=== PATIENT | male | born 1975 | race Caucasian/White ===

== ENCOUNTER 2017-10-12 15:22 | Emergency (ER) | payer OTHER ==
[~2017-10-12] VITALS: Ht 177.8 cm; Wt 58.1 kg
--- NOTE | 2017-10-12 16:29 | ED CARDIAC/CP/PALPITATIONS ---
History of Present Illness General Chief Complaint: Chest Pain Stated Complaint: C/P SOB Source: patient Exam Limitations: no limitations Vital Signs & Intake/Output Vital Signs & Intake/Output Vital Signs Date Time Temp Pulse Resp B/P B/P Pulse O2 O2 Flow FiO2 Mean Ox Delivery Rate 10/12 1836 104 20 165/97 97 Nasal 2.0L Cannula 10/12 1745 97 Nasal 2.0L Cannula 10/12 1553 98.0 104 26 156/102 97 Nasal 2.0L Cannula Allergies Coded Allergies: gabapentin (From NEURONTIN) (Severe, HIVES 10/12/17) naproxen (Severe, HIVES 10/12/17) tramadol (From ULTRAM) (Severe, HIVES 10/12/17) Triage Note: PATIENT DIRECTLY TO ROOM 18 FROM EKG [place]. HX OF COPD/ASTHMA INCREASED SOB X 2-3 DAYS. BASELINE 2 L NC, SAT 97%. LUNGS DIMISHED BILATERALLY. Triage Nurses Notes Reviewed? yes Onset: Abrupt Duration: week(s): (2-3), changing over time, continues in ED, getting worse Timing: recent history Quality/Severity: moderate, pressure Location: substernal Radiation: no radiation Activities at Onset: activity Prior Chest Pain/Card Workup: non-cardiac Modifying Factors: Worsens With: palpation. Nitro Today/Relief: no nitro taken today Aspirin Today: no aspirin today Associated Symptoms: shortness of breath HPI: 42-year-old male past medical history of asthma, COPD and narcotic abuse presents for evaluation of shortness of breath and chest pain. Patient states that over the past 2-3 weeks he has had worsening shortness of breath and chest pain. Patient states that he is on oxygen 2 L at nighttime only but feels like he needs to be on it all the time. He states that when he is on his oxygen he feels fine and has no symptoms. He states that without the oxygen he is needed to use his inhalers and nebulizers [id number] without any improvement. Without the oxygen he feels chest pain and shortness of breath that are particularly worsened with exertion. He denies any hemoptysis lower extremity edema or fever. He is currently taking 20 mg of prednisone has been tapered down from 50 over the past several weeks. He is in the process of getting oxygen approved for 24 7 use and has an appointment with his open shank coverer this coming Wednesday but he feels that he cannot wait because his symptoms are worsening. He is a current smoker. No nausea vomiting sweats chills or fevers. Past History Travel History Traveled to [place] past 21 day No Medical History Any Pertinent Medical History? see below for history Respiratory: asthma, COPD Surgical History Surgical History: non-contributory Psychosocial History What is your primary language Irish Tobacco Use: Quit <30 days ago Family History Hx Contributory? No Review of Systems Review of Systems Constitutional: Reports: no symptoms. EENTM: Reports: no symptoms. Respiratory: Reports: see HPI, cough, short of breath, wheezing. Cardiovascular: Reports: see HPI, chest pain. GI: Reports: no symptoms. Genitourinary: Reports: no symptoms. Musculoskeletal: Reports: no symptoms. Skin: Reports: no symptoms. Neurological/Psychological: Reports: no symptoms. Hematologic/Endocrine: Reports: no symptoms. Immunologic/Allergic: Reports: no symptoms. All Other Systems: Reviewed and Negative Physical Exam Physical Exam General Appearance: no apparent distress, alert, awake, cachetic, thin Head: atraumatic, normal appearance Eyes: Bilateral: normal appearance, PERRL, EOMI. Ears, Nose, Throat: normal pharynx, normal ENT inspection, hearing grossly normal Neck: normal inspection, supple, full range of motion Respiratory: chest non-tender, no respiratory distress, quiet respiration, decreased breath sounds Cardiovascular: normal peripheral pulses, tachycardia, no murmurs Peripheral Pulses: 2+ radial (R), 2+ radial (L) Gastrointestinal: normal bowel sounds, soft, non-tender, no organomegaly Back: normal inspection, normal range of motion, no vertebral tenderness Extremities: normal inspection, normal range of motion, no edema, there are multiple superficial abrasions on the right forearm. There are some surrounding erythema. There is also evidence of previous IV drug use, no focal fluctuant areas or discharge Neurologic/Psych: no motor/sensory deficits, awake, alert, oriented x 3, normal gait Skin: intact, normal color, warm/dry Lymphatic: no anterior cervical chance Core Measures ACS in differential dx? No CVA/TIA Diagnosis No Sepsis Present: No Sepsis Focused Exam Completed? No Progress Differential Diagnosis: AMI, atrial fibrillation, CHF/pulm edema, pneumonia, pulmonary embolism, respiratory failure, sepsis, unstable angina, COPD exacerbation, CHF, asthma exacerbation, acute bronchitis Plan of Care: Orders Procedure Date/time Status Add-on Test (ER Only) 10/12 1603 Active Telemetry/Manager Clinical Research 10/12 1531 Active TROPONIN LEVEL 10/12 1531 Complete D-DIMER 10/12 1531 Complete COMPREHENSIVE METABOLIC PANEL 10/12 1531 Complete CBC WITHOUT DIFFERENTIAL 10/12 1531 Complete EKG 10/12 1529 Active Laboratory Tests 10/12/17 1649: D-Dimer High Sensitivty < 200 10/12/17 1636: CBC w Diff NO MAN DIFF REQ, RBC 5.90, MCV 83.3, MCH 26.2 L, MCHC 31.4 L, RDW 15.1 H, MPV 7.0 L, Gran % 58.5, Lymphocytes % 30.2, Monocytes % 8.9, Eosinophils % 2.2, Basophils % 0.2, Absolute Granulocytes 6.4, Absolute Lymphocytes 3.3, Absolute Monocytes 1.0 H, Absolute Eosinophils 0.2, Absolute Basophils 0 10/12/17 1635: Anion Gap 12, Estimated GFR > 60, BUN/Creatinine Ratio 21.7, Glucose 95, Calcium 9.2, Total Bilirubin 0.6, AST 16 L, ALT 24, Alkaline Phosphatase 71, Troponin I 0.02, Total Protein 7.0, Albumin 4.1, Globulin 2.9, Albumin/Globulin Ratio 1.4 Since evaluated. He states that over the past several weeks he feels like he needs to be on abduction 24 7. When he is on his oxygen he feels completely fine however during the day when he is not supposed to be on it he has chest pain and shortness of breath. He has been using his inhalers and nebulizers [id number] without any improvement. He denies any fever or hemoptysis. Currently he is on oxygen at 3 L nasal cannula and feels completely fine. Basic labs EKG troponin d-dimer and chest x-ray are negative for any acute findings. Patient was ambulated in the emergency department without oxygen and acutely desaturated to 89% on room air. He becomes visibly short of breath. Advised patient that he should be admitted to the hospital for further evaluation and treatment. Patient states that he is unable to stay in the hospital tonight. He states that he needs to leave to take care of his . He refuses to elaborate on exactly what this means. Advised him he could have his come in and state the hospital H and refused to have this happen. He wishes to leave AGAINST MEDICAL ADVICE. Discussed with patient in great detail about the negative health effects of hypoxia including permanent disability and . Patient is alert and oriented 3 he understands this and wishes to leave anyway. AMA form signed. Again reviewed with patient about negative health effects that he risks and he understands. Advised him he can return at any time. He states he'll come back tomorrow for reevaluation. Patient alert he has oxygen that he can use at home and advised him to use this 24 7. Continue to use inhalers as needed. He was given Solu-Medrol here. Return to the emergency department as soon as possible. Patient agrees with the plan is alert and oriented 3 discharge. Diagnostic Imaging: Viewed by Me: Radiology Read. Discussed w/RAD: Radiology Read. CXR Impression: PATIENT: JAXON PULIDO PRESENT AGE: 42 PATIENT ACCOUNT NO: [id number] : 75 LOCATION: [facility] ORDERING PHYSICIAN: Andrés RAMSEY SERVICE DATE: 10/12/17 EXAM TYPE: RAD - XRY-CHEST XRAY, TWO VIEWS EXAMINATION: XR CHEST CLINICAL INFORMATION: Chest pain, shortness of breath COMPARISON: None TECHNIQUE: 2 views of the chest were obtained. FINDINGS: No significant abnormality is noted involving the heart, lungs, mediastinum, bony thorax or soft tissues. IMPRESSION: No acute abnormality of the chest. DICTATED BY: Mahamed Steinberg MD DATE/TIME DICTATED:10/12/171648 SAND TECHNOLOGIST :JACQUIE DATE/TIME TRANSCRIBED:10/12/171648 CONFIDENTIAL, DO NOT COPY WITHOUT APPROPRIATE AUTHORIZATION. Initial ED EKG: SINUS TACHYCARDIA, RIGHT ATRIAL ABNORMALITY, BORDERLINE PROLONGED qt Departure Departure Disposition: LEFT AGAINST MEDICAL ADVICE Condition: Stable Clinical Impression Primary Impression: COPD exacerbation Additional Instructions: You are leaving AGAINST MEDICAL ADVICE it is recommended that he stay for further evaluation and treatment. Leaving the hospital could result in permanent disability or . Continue to use her inhalers and nebulizers as directed. Return to the emergency Department as soon as possible for admission to the hospital. Departure Forms: Customer Survey General Discharge Information Critical Care Note Critical Care Note Critical Care Time: non-applicable
--- NOTE | 2017-10-12 16:53 | RADIOLOGY REPORT ---
EXAMINATION: XR CHEST CLINICAL INFORMATION: Chest pain, shortness of breath COMPARISON: None TECHNIQUE: 2 views of the chest were obtained. FINDINGS: No significant abnormality is noted involving the heart, lungs, mediastinum, bony thorax or soft tissues. IMPRESSION: No acute abnormality of the chest.
[2017-10-12 16:57] LABS: ABSOLUTE BASOPHIL COUNT 0 /CUMM (0.0-0.2); ABSOLUTE EOSINOPHIL COUNT 0.2 /CUMM (0.0-0.7); ABSOLUTE GRANULOCYTE CT 6.4 /CUMM (1.4-6.5); ABSOLUTE LYMPH COUNT 3.3 /CUMM (1.2-3.4); BASOPHIL % 0.2 % (0.0-2.0); EOSINOPHIL % 2.2 % (0-5); GRANULOCYTE % 58.5 % (42.2-75.2); HEMATOCRIT 49.2 % (42-52); MEAN CORPUSCULAR HGB 26.2 PG (27.0-31.0); MEAN CORPUSCULAR HGB CONC 31.4 G/DL (33.0-37.0); MEAN CORPUSCULAR VOLUME 83.3 FL (80.0-94.0); PLATELET COUNT 367 /CUMM (130-400); RBC DISTRIBUTION WIDTH 15.1 % (11.5-14.5)
[2017-10-12 18:36] VITALS: BP 165/97
[2017-10-13] MEDS ORDERED: IPRAT-ALBUT 0.5-3 ML INH (20:22)
[2017-10-13] MEDS ORDERED: ALPRAZOLAM2 M2 PO (20:23)
[2017-10-13] MEDS ORDERED: PROAIR HFA8.5 GM INH (20:23)
[2017-10-13] MEDS ORDERED: METHADONE10 MG/1 M2 PO (20:24)
== END 2017-10-12 19:03 | disposition left against medical advice (07) ==
LOC: ERH 15:22
PROVIDERS: Physician Assistant Medical
DX: J44.1 Chronic obstructive pulmonary disease with (acute) exacerbation (principal); Z87.891 Personal history of nicotine dependence; R07.9 Chest pain, unspecified
CPT/HCPCS: 71046; 93005; 93010; 96374; J2930

== ENCOUNTER 2017-10-13 14:08 | Inpatient (IN) | payer OTHER ==
[~2017-10-13] VITALS: Ht 177.8 cm; Wt 59.0 kg
--- NOTE | 2017-10-13 18:36 | ED DYSPNEA/ASTHMA COMPLAINT ---
History of Present Illness General Chief Complaint: Dyspnea (COPD, CHF, Other) Stated Complaint: RETURN TO ER FOR ADMISSION (SEEN YEST LEFT AMA) Source: patient, old records Exam Limitations: no limitations Allergies Coded Allergies: gabapentin (From NEURONTIN) (Severe, HIVES 10/12/17) naproxen (Severe, HIVES 10/12/17) tramadol (From ULTRAM) (Severe, HIVES 10/12/17) Triage Note: PT RETURNS TO ED FOR ADMISSION. WAS SEEN IN ED YESTERDAY FOR COPD. PT LEFT AMA TO GET HIS "HOUSE IN ORDER". ARRIVES BACK TO BE ADMITTED. RA SATS 92%. PT STATES HE WEARS O2 AT NIGHT AND IS TRYING TO GET O2 DURING THE DAY. PLACED ON 2LNC IN WAITING ROOM FOR COMFORT. Triage Nurses Notes Reviewed? yes Onset: Abrupt Duration: week(s): (3-4), changing over time, continues in ED, getting worse Timing: multiple episodes today Severity: mild, moderate Activities at Onset: none Prior Episodes/Possible Cause: frequent episodes Modifying Factors: Worsens With: movement. Associated Symptoms: cough, wheezing, weakness HPI: 42-year-old male with past medical history of COPD asthma substance abuse presents for reevaluation of shortness of breath. Patient states that over the past 3 or 4 weeks she's had gradually worsening shortness of breath weakness and chest pain. Patient states that he currently is prescribed oxygen at nighttime only. He states that when he is on the oxygen he is doing fine however he says when he wakes up and gets off the oxygen he became severely short of breath. He 's been using DuoNeb's [id number] without any improvement. He denies any hemoptysis or lower extremity edema. He was seen in the hospital yesterday and was unable to stay for unknown reasons but he left AGAINST MEDICAL ADVICE. He is back today and is going to be admitted. He states he is feeling somewhat better after the IV steroids but is still having the same symptoms. No fevers cough is productive of clear sputum. (Andrés Peralta) Vital Signs & Intake/Output Vital Signs & Intake/Output Vital Signs Date Time Temp Pulse Resp B/P B/P Pulse O2 O2 Flow FiO2 Mean Ox Delivery Rate 10/14 0618 97.5 51 18 150/100 97 Nasal Cannula 10/14 0000 Nasal 2.0L Cannula 10/13 2330 98.1 85 20 140/80 95 Nasal 2.0L Cannula 10/13 2315 Nasal 2.0L Cannula 10/13 2243 96.8 87 18 117/87 97 Nasal 2.0L Cannula 10/13 2118 96.6 87 18 114/81 97 Nasal 2.0L Cannula 10/13 1956 98 20 142/82 96 Room Air 10/13 1908 98 Nasal 2.0L Cannula 10/13 1715 98.5 110 19 155/92 97 Nasal 3.0L Cannula 10/13 1516 20 96 Nasal 2.0L Cannula 10/13 1418 98.3 119 20 152/100 92 Room Air ED Intake and Output 10/14 0000 10/13 1200 Intake Total 0 Output Total Balance 0 Intake, Oral 0 Patient 130 lb Weight Weight Reported by Patient Measurement Method Reconcile Medications Albuterol Sulfate (Proair Hfa) 90 MCG HFA.AER.AD 2 PUF INH Q4H PRN WHEEZING ( Reported) Alprazolam 2 MG TABLET 1 TAB PO BID ANXIETY (Reported) Ipratropium/Albuterol Sulfate (Iprat-Albut 0.5-3(2.5) MG/3 Ml) 0.5 MG-3 MG (2.5 MG BASE)/3 ML AMPUL.NEB 3 ML INH Q6H PRN WHEEZING (Reported) Methadone HCl 10 MG/ML ORAL.CONC 100 MG PO DAILY MENTAL HEALTH (Reported) (Abi KAMINSKI,[facility]) Past History Travel History Traveled to [place] past 21 day No Medical History Any Pertinent Medical History? see below for history Respiratory: asthma, COPD Psychiatric: methadone Surgical History Surgical History: non-contributory Psychosocial History What is your primary language Dutch Tobacco Use: Quit <30 days ago ETOH Use: denies use Illicit Drug Use: denies illicit drug use Family History Hx Contributory? No (Anish RAMSEY,Andrés) Review of Systems Review of Systems Constitutional: Reports: no symptoms. EENTM: Reports: no symptoms. Respiratory: Reports: see HPI, cough, short of breath, sputum production, wheezing. Cardiovascular: Reports: see HPI, chest pain. GI: Reports: no symptoms. Genitourinary: Reports: no symptoms. Musculoskeletal: Reports: no symptoms. Skin: Reports: no symptoms. Neurological/Psychological: Reports: no symptoms. Hematologic/Endocrine: Reports: no symptoms. Immunologic/Allergic: Reports: no symptoms. All Other Systems: Reviewed and Negative (Andrés Peralta) Physical Exam Physical Exam General Appearance: no apparent distress, alert, awake, cachetic, thin Head: atraumatic, normal appearance Eyes: Bilateral: normal appearance, PERRL, EOMI. Ears, Nose, Throat: normal pharynx, normal ENT inspection, hearing grossly normal Neck: normal inspection, supple, full range of motion, no jvd Respiratory: chest non-tender, no respiratory distress, quiet respiration, decreased breath sounds Cardiovascular: normal peripheral pulses, tachycardia (rate 110) Peripheral Pulses: 2+ radial (R), 2+ radial (L) Gastrointestinal: normal bowel sounds, soft, non-tender, no organomegaly Extremities: normal range of motion, no edema, patient has previous scar tissue from IV drug use. They are superficial abrasions with surrounding erythema to the right anterior forearm. No swelling or purulent discharge. No tenderness to palpation. This is unchanged from yesterday Neurologic/Psych: no motor/sensory deficits, awake, alert, oriented x 3 Skin: intact, normal color, warm/dry Core Measures ACS in differential dx? No CVA/TIA Diagnosis No Sepsis Present: No Sepsis Focused Exam Completed? No (Andrés Peralta) Progress Differential Diagnosis: asthma, AMI, bronchitis, CHF, COPD, pulmonary embolism, pneumonia, pneumothorax Plan of Care: Orders Procedure Date/time Status Regular Diet 10/14 B Active BASIC ELECTROLYTES PLUS BUN&CR 10/14 0635 Complete TROPONIN LEVEL 10/14 0600 Complete CBC WITHOUT DIFFERENTIAL 10/14 06 Complete EKG 10/14 0600 Active Pathway - chart 10/14 108 Active House Staff 10/14 108 Active Patient Data 10/14 108 Active TROPONIN LEVEL 10/14 010 Complete EKG 10/14 010 Active Code Status 10/14 010 Active TRC EVALUATION (GEN) 10/14 UNK Active VTE Mechanical Prophylaxis 10/14 UNK Active Vital Signs 10/14 UNK Active PHARMACY COMMUNICATION FORM 10/14 UNK Active NUTRITIONAL CONSULT 10/13 2337 Active Vital Signs 10/13 2319 Active Teach/Educate 10/13 2319 Active Pain Treatment and Response 10/13 2319 Active Nutritional Intake, Monitor 10/13 2319 Active Isolation 10/13 2319 Active Intake & Output 10/13 2319 Active Patient Care Conference 01/31 2320 Active Activity/Ambulation 10/13 232 Active RAPID VIRAL INFLUENZA A 10/13 2230 Complete Patient Data 10/13 2157 Active ED Holding Orders 10/13 2114 Active Admit to inpatient 10/13 2114 Active Vital Signs 10/13 2114 Active Code Status 10/13 2114 Complete ARTERIAL BLOOD GAS (GEN) 10/13 1937 Complete Intake & Output 10/13 181 Active BLOOD CULTURE 10/13 181 Active URINE DRUG SCREEN FOR ER ONLY 10/13 172 Complete URINALYSIS 10/13 1726 Complete TROPONIN LEVEL 10/13 172 Complete COMPREHENSIVE METABOLIC PANEL 10/13 172 Complete CBC WITHOUT DIFFERENTIAL 10/13 172 Complete EKG 10/13 172 Active Current Medications Sig/Tab Start time Last Medication Dose Stop Time Status Admin Alprazolam 2 MG BID 10/14 1000 AC 10/14 (Xanax) 10/21 0959 0900 Azithromycin 500 MG DAILY 10/14 1000 AC 10/14 (Zithromax) 0940 Dextrose/Water 250 ML (D5W) Enoxaparin Sodium 40 MG DAILY 10/14 1000 AC 10/14 (Lovenox) 0908 Guaifenesin 600 MG Q12 10/14 1000 AC 10/14 (Mucinex) 0900 Methadone HCl 100 MG DAILY 10/14 1000 AC 10/14 (Dolophine) 0844 Methylprednisolone 40 MG Q12 10/14 1000 AC 10/14 (Solumedrol) 0900 Acetaminophen 650 MG Q6P PRN 10/14 0115 AC (Tylenol) Albuterol Sulfate 2 PUF Q4H PRN 10/14 0115 AC (Ventolin) Methylprednisolone 125 MG ONCE ONE 10/13 184 CAN (Solu Medrol) 10/13 1846 Laboratory Tests 10/14/17 1020: Urine Opiates Screen > 4000.00 H, Methadone Screen > 735 H, Barbiturate Screen < 60, Ur Phencyclidine Scrn 10.10, Amphetamines Screen < 100, U Benzodiazepines Scrn > 800 H, Urine Cocaine Screen > 1000 H, Urine Cannabis Screen < 5.00, Urine Color YEL, Urine Clarity CLEAR, Urine pH 6.0, Ur Specific [place] 1.025, Urine Protein NEG, Urine Ketones NEG, Urine Nitrite NEG, Urine Bilirubin NEG, Urine Urobilinogen 0.2, Ur Leukocyte Esterase NEG, Ur Microscopic EXAM NOT REQUIRED, Urine Hemoglobin NEG, Urine Glucose NEG 10/14/17 0742: Sodium Cancelled, Potassium Cancelled, Chloride Cancelled, Carbon Dioxide Cancelled, Anion Gap Cancelled, BUN Cancelled, Creatinine Cancelled, BUN/ Creatinine Ratio Cancelled, CBC w Diff NO MAN DIFF REQ, RBC 5.41, MCV 83.1, MCH 26.5 L, MCHC 31.9 L, RDW 15.1 H, MPV 7.2 L, Gran % 74.3, Lymphocytes % 18.4 L, Monocytes % 7.0, Eosinophils % 0, Basophils % 0.3, Absolute Granulocytes 9.2 H, Absolute Lymphocytes 2.3, Absolute Monocytes 0.9 H, Absolute Eosinophils 0, Absolute Basophils 0 10/14/17 0635: Anion Gap 13, Estimated GFR > 60, BUN/Creatinine Ratio 36.0 H, Troponin I < 0.01 10/14/17 0120: Troponin I < 0.01 10/13/17 2018: Anion Gap 13, Estimated GFR > 60, BUN/Creatinine Ratio 30.0 H, Glucose 138 H, Calcium 9.6, Total Bilirubin 0.6, AST 15 L, ALT 18 L, Alkaline Phosphatase 66, Troponin I < 0.01, Total Protein 7.1, Albumin 4.2, Globulin 2.9, Albumin/ Globulin Ratio 1.4 10/13/17 2015: pH 7.39, pCO2 55 H, pO2 75 L, HCO3 33 H, ABG O2 Sat (Measured) 95.0 L, P-50 (Temp Corrected) N, Carboxyhemoglobin 2.3, O2 Concentration % 2L, O2 Delivery Method N/C, Phlebotomy Draw Site RIGHT RADIAL 10/13/171905: CBC w Diff NO MAN DIFF REQ, RBC 5.96, MCV 83.1, MCH 26.3 L, MCHC 31.6 L, RDW 15.7 H, MPV 7.4, Gran % 80.3 H, Lymphocytes % 12.2 L, Monocytes % 6.9, Eosinophils % 0.2, Basophils % 0.4, Absolute Granulocytes 7.2 H, Absolute Lymphocytes 1.1 L, Absolute Monocytes 0.6, Absolute Eosinophils 0, Absolute Basophils 0 Microbiology 10/13 2233 NASOPHARYN: Influenza Virus A & B Rapid Smear - COMP 10/13 1905 BLOOD: Blood Culture - RES 01/31 1850 BLOOD: Blood Culture - RES Patient seen and evaluated. He is mentating well but is significantly hypoxic. He denies any chest pain currently. He is back and willing to be admitted now. He is still hypoxic desaturating to 85% on room air with exertion. We'll recheck basic labs CT scan of the chest and an ABG. Patient will require admission to the hospital. He is on [address] scan of the chest does not show any pneumonia or other acute findings. Waiting on labs and ABG for admission. pt signed out to dr alex pending admission and labs (Anish RAMSEY,Andrés) 8:43 PM PATIENT SIGNED OUT TO ME BY BRAULIO AWAD, PENDING CHEMISTRIES. 9:15 PM TROPONIN NEGATIVE. PATIENT BOOKED FOR INPATIENT, COPD EXACERBATION. (Abi KAMINSKI,Danielle) Diagnostic Imaging: Viewed by Me: CT Scan. Discussed w/RAD: CT Scan. Radiology Impression: PATIENT: JAXON PULIDO PRESENT AGE: 42 PATIENT ACCOUNT NO: [id number] : 75 LOCATION: [facility] ORDERING PHYSICIAN: Andrés RAMSEY SERVICE DATE: 10/13/17 EXAM TYPE: CAT - CT CHEST WO IV CONTRAST EXAMINATION: CT CHEST WITHOUT CONTRAST CLINICAL INFORMATION : Shortness of breath COMPARISON: Chest x-ray 10/12/2017 TECHNIQUE: Multidetector volumetric CT imaging of the chest was done. Axial MIP volume rendering provided. Sagittal and coronal reformatted images were obtained. DLP: 224.01 mGy-cm FINDINGS: LUNGS: The lungs are clear with no evidence of inflammation or nodules. MEDIASTINUM: The mediastinum is normal. PLEURA: There is no pleural effusion. No pleural mass or thickening. AXILLA: No lymphadenopathy. UPPER ABDOMEN: There are pedunculated cysts of the kidneys. Largest on the left upper pole measuring 4.3 cm. There is a pedunculated cyst at the posterior midpole of the right kidney measuring 1.9 cm. The adrenal gland is normal. Visualized portions of liver and spleen are unremarkable. OSSEOUS STRUCTURES: Small Schmorl's node depression of the anterior superior endplate T8 vertebrae. Minimal degenerative lipping at the anterior endplates of the mid lower thoracic spine vertebrae. IMPRESSION: No acute abnormality CT scan of the chest. DICTATED BY: Mahamed Steinberg MD DATE/TIME DICTATED:10/13/171823 SERVICE PARTS COORDINATOR:JACQUIE DATE/TIME TRANSCRIBED:10/13/171823 CONFIDENTIAL, DO NOT COPY WITHOUT APPROPRIATE AUTHORIZATION. <Electronically signed in Other Vendor System> SIGNED BY: Mahamed Steinberg MD 10/13/171838 Initial ED EKG: sinus arrhythmia, consider right ventricular hypertrophy rate 74 bpm Hand-Off Endorsed To: Danielle Alex MD Endorsed Time: 2043 Pending: labs (Andrés Peralta) Departure Departure Condition: Stable Clinical Impression Primary Impression: COPD exacerbation Secondary Impressions: Hypoxia Referrals: Ermias KAMINSKI Sameer (PCP/Family) Departure Forms: Customer Survey General Discharge Information Admission Note Spoke With: Kaden Raymundo MD Documentation of Exam: Documentation of any treatments & extenuating circumstances including Concerns Regarding Discharge (functional status, medication knowledge or non-compliance, living conditions, etc.) that warrant an admission rather than observation: [ Pulmonology consult, oxygen, serial labs, serial EKGs, IV steroids, DuoNeb ] (Andrés Peralta) Departure Time of Disposition: 2115 Disposition: STILL A PATIENT Admission Note Documentation of Exam: Documentation of any treatments & extenuating circumstances including Concerns Regarding Discharge (functional status, medication knowledge or non-compliance, living conditions, etc.) that warrant an admission rather than observation: (Danielle Alex MD) PA/WOOD SETTER Co-Sign Statement Statement: ED Attending supervision documentation- [x] I saw and evaluated the patient. I have also reviewed all the pertinent lab results and diagnostic results. I agree with the findings and the plan of care as documented in the PA's/WOOD SETTER's documentation. [] I have reviewed the ED Record and agree with the PA's/WOOD SETTER's documentation. [] Additions or exceptions (if any) to the PAs/WOOD SETTER's note and plan are summarized below: [] (Lorenzo Aguilar DO) Critical Care Note Critical Care Note Critical Care Time: 30-74 min (Andrés Peralta)
--- NOTE | 2017-10-13 18:39 | CT SCAN REPORT ---
EXAMINATION: CT CHEST WITHOUT CONTRAST CLINICAL INFORMATION: Shortness of breath COMPARISON: Chest x-ray 10/12/2017 TECHNIQUE: Multidetector volumetric CT imaging of the chest was done. Axial MIP volume rendering provided. Sagittal and coronal reformatted images were obtained. DLP: 224.01 mGy-cm FINDINGS: LUNGS: The lungs are clear with no evidence of inflammation or nodules. MEDIASTINUM: The mediastinum is normal. PLEURA: There is no pleural effusion. No pleural mass or thickening. AXILLA: No lymphadenopathy. UPPER ABDOMEN: There are pedunculated cysts of the kidneys. Largest on the left upper pole measuring 4.3 cm. There is a pedunculated cyst at the posterior midpole of the right kidney measuring 1.9 cm. The adrenal gland is normal. Visualized portions of liver and spleen are unremarkable. OSSEOUS STRUCTURES: Small Schmorl's node depression of the anterior superior endplate T8 vertebrae. Minimal degenerative lipping at the anterior endplates of the mid lower thoracic spine vertebrae. IMPRESSION: No acute abnormality CT scan of the chest.
[2017-10-13 19:23] LABS: ABSOLUTE BASOPHIL COUNT 0 /CUMM (0.0-0.2); ABSOLUTE EOSINOPHIL COUNT 0 /CUMM (0.0-0.7); ABSOLUTE GRANULOCYTE CT 7.2 /CUMM (1.4-6.5); ABSOLUTE LYMPH COUNT 1.1 /CUMM (1.2-3.4); ABSOLUTE MONOCYTE COUNT 0.6 /CUMM (0.10-0.60); BASOPHIL % 0.4 % (0.0-2.0); EOSINOPHIL % 0.2 % (0-5); GRANULOCYTE % 80.3 % (42.2-75.2); HEMATOCRIT 49.5 % (42-52); MEAN CORPUSCULAR HGB 26.3 PG (27.0-31.0); MEAN CORPUSCULAR HGB CONC 31.6 G/DL (33.0-37.0); MEAN CORPUSCULAR VOLUME 83.1 FL (80.0-94.0); MEAN PLATELET VOLUME 7.4 FL (7.4-10.4); RBC DISTRIBUTION WIDTH 15.7 % (11.5-14.5); RED BLOOD CELL CT 5.96 /CUMM (4.70-6.10)
[2017-10-13 19:35] LABS: PLATELET COUNT 100 /CUMM (130-400)
[2017-10-13] MEDS ORDERED: IPRAT-ALBUT 0.5-3 ML INH (20:22)
[2017-10-13] MEDS ORDERED: ALPRAZOLAM2 M2 PO (20:23)
[2017-10-13] MEDS ORDERED: PROAIR HFA8.5 GM INH (20:23)
[2017-10-13] MEDS ORDERED: METHADONE10 MG/1 M2 PO (20:24)
--- NOTE | 2017-10-13 22:03 | History & Physical ---
Larry KAMINSKI,[facility] 10/13/17 4043: General Information and HPI MD Statement: I have seen and personally examined JAXON PULIDO and documented this H&P. The patient is a 42 year old M who presented with a patient stated chief complaint of [shortness of breath]. Source of Information: patient, family Exam Limitations: no limitations History of Present Illness: 42-year-old male past medical history of asthma, COPD, substance abuse, currently on methadone presenting for shortness of breath. The patient states that he has a history of asthma and sees a asphalt heater tender. The patient states that he is on 2 L of oxygen at night and is on every 6 hours nebulizers as needed. The patient states that he desaturates to 86% oxygen daily even at rest. The patient states that his shortness of breath has been worsening for 1 week. He has attempted to try to follow-up with a asphalt heater tender for home oxygen however it was going to take him 3 weeks to get an appointment. The patient states that he quit smoking about one month ago. He used to smoke 1.5 packs a day for the past 25 years. The patient states that he has also had chest tightness of his her for 1 week. The patient states that the tightness occurs after he is tapered off the oxygen treatment. Also note, the patient has lost 62 pounds in the past month. The patient denies any fevers, chills, nausea, vomiting, or diarrhea. Of note, the patient states that his prior chest x-rays have revealed what he describes as 2 shadows. The patient also has mold his house and left AMA upon last discharge. Allergies/Medications Allergies: Coded Allergies: gabapentin (From NEURONTIN) (Severe, HIVES 10/12/17) naproxen (Severe, HIVES 10/12/17) tramadol (From ULTRAM) (Severe, HIVES 10/12/17) Home Med list Albuterol Sulfate (Proair Hfa) 90 MCG HFA.AER.AD 2 PUF INH Q4H PRN WHEEZING ( Reported) Alprazolam 2 MG TABLET 1 TAB PO BID ANXIETY (Reported) Ipratropium/Albuterol Sulfate (Iprat-Albut 0.5-3(2.5) MG/3 Ml) 0.5 MG-3 MG (2.5 MG BASE)/3 ML AMPUL.NEB 3 ML INH Q6H PRN WHEEZING (Reported) Methadone HCl 10 MG/ML ORAL.CONC 100 MG PO DAILY MENTAL HEALTH (Reported) Past History Travel History Traveled to [place] past 21 day No Medical History Respiratory: asthma, COPD Psychiatric: methadone Surgical History Surgical History: non-contributory Past Family/Social History Psychosocial History ETOH Use: denies use Illicit Drug Use: denies illicit drug use Review of Systems Review of Systems Constitutional: Denies: chills, fever. Cardiovascular: Reports: see HPI, chest pain. Respiratory: Reports: short of breath. GI: Reports: no symptoms. Genitourinary: Reports: no symptoms. Exam & Diagnostic Data Last 24 Hrs of Vital Signs/I&O Vital Signs Date Time Temp Pulse Resp B/P B/P Pulse O2 O2 Flow FiO2 Mean Ox Delivery Rate 10/14 0000 Nasal 2.0L Cannula 10/13 2330 98.1 85 20 140/80 95 Nasal 2.0L Cannula 10/13 2315 Nasal 2.0L Cannula 10/13 2243 96.8 87 18 117/87 97 Nasal 2.0L Cannula 10/13 2118 96.6 87 18 114/81 97 Nasal 2.0L Cannula 10/13 1956 98 20 142/82 96 Room Air 10/13 1908 98 Nasal 2.0L Cannula 10/13 1715 98.5 110 19 155/92 97 Nasal 3.0L Cannula 10/13 1516 20 96 Nasal 2.0L Cannula 10/13 1418 98.3 119 20 152/100 92 Room Air Intake & Output 10/14 0800 10/14 0000 10/13 1600 Intake Total 0 Output Total Balance 0 Intake, Oral 0 Patient 130 lb 128 lb Weight Weight Reported by Patient Reported by Patient Measurement Method Physical Exam General Appearance Alert, Oriented X3, Cooperative, No Acute Distress Cardiovascular Regular Rate, Normal S1, Normal S2 Lungs decreased air movement bilaterally Abdomen Normal Bowel Sounds, Soft, No Tenderness Extremities no lower extremity edema Vascular 2+ radial pulses Assessment/Plan Assessment: Assessment: 42-year-old male past medical history of asthma, COPD,substance abuse, currently on methadone presenting for chief complaints of flulike symptoms. Problems: #COPD WBC 9.0 -solumedrol 40 twice a day, -Contact pulmonary service for consult -Continue TRC, nebs, azithromycin -Monitor oxygen saturation and ambulation -Discussed with case management regarding patient's end-of-life goals. #chronic pain Patient states he takes 100 mg methadone from 7:30 2 in the morning. We will confirm his dosing. #anxiety -Continue home Xanax #thrombocytopenia -platelets 100 #dvt prophylaxis -lovenox #full code As Ranked By This Provider Problem List: 1. COPD exacerbation Core Measures/Misc (05/30) Acute Coronary Syndrome ACS Diagnosis: No Congestive Heart Failure Congestive Heart Failure Diagnosis No Cerebrovascular Accident CVA/TIA Diagnosis: No VTE (View Protocol) VTE Risk Factors Acute Medical Illness No Mechanical VTE Prophylaxis d/t Other No VTE Pharm Prophylaxis d/t NA PharmProphylax ordered Sepsis (View protocol) Sepsis Present: No Kaden Raymundo 10/14/17 0505: Attending MD Review Statement Attending Statement Attending MD Statement: examined this patient, discuss w/resident/PA/REHAB SPECIALIST, agreed w/resident/PA/REHAB SPECIALIST, discussed with family, reviewed EMR data (avail), reviewed images, amended to note Attending Assessment/Plan: CC: Shortness of breath PMH: Asthma, COPD Patient came to ER for persistent shortness of breath. Patient was seen in ER yesterday for similar complaints and was suggested to get admitted but patient left AMA as he had to check out from hotel room. Patient checked in a hotel because his house has mold. Since last 1-2 weeks he has been noticing progressive worsening of shortness of breath associated with wheezing. He uses nighttime oxygen but even during daytime he is requiring oxygen and getting low oxygen saturation even going few steps. Yesterday and today he noticed some cough with no sputum production. Intermittently he has been noticing chest tightness more so in the morning hours when he wakes up and feels shortness of breath and has to use oxygen to relieve the chest pain. He denies any fever, chills, nausea, vomiting, choking, long travels. He has been losing weight, he lost approximately 60 pounds in last 1 month. He was also told that he has 2 pulmonary nodules approximately 2 months back and he was suggested to follow-up with serial CT scans. Patient states that he has been following outpatient asphalt heater tender but not very happy with the care, he was requesting for daytime oxygen to the asphalt heater tender but could not get in appointment. 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 Patient states that he had tried Spiriva, Advair and such medications in the past and it gives him more tachycardia, shortness of breath and he feels panicky. Vitals: Afebrile, tachycardic on arrival but improved to 80s, RR 20, blood pressure 142/82, saturating 92% on 2 L, desaturated less than 87% on ambulating On exam: A O 3, cooperative, no acute distress, neck supple, JVD normal, no lymphadenopathy, mucosa moist, no focal neurological deficit, no dependent edema , no obvious skin rashes or inflammation CVS: S1-S2, RRR. RS: Markedly decreased air entry. Abdomen: Soft, NT, ND, bowel sounds present. Labs: CBC unremarkable except platelet 100, which decreased from 367 yesterday. Sodium 143, potassium 4.2, chloride 94, bicarbonate 36, BUN 18, creatinine 0.6, glucose 138, calcium 9.6, LFT unremarkable, troponin less than 0.01, AB.39/55/75/33 on [address] chest without IV contrast: No acute abnormality CT scan of the chest. There are pedunculated cysts of the kidneys. Largest on the left upper pole measuring 4.3 cm. There is a pedunculated cyst at the posterior midpole of the right kidney measuring 1.9 cm. 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 Patient was seen in ER yesterday but he left AGAINST MEDICAL ADVICE, he was prescribed prednisone and nebulization treatment. He came back today expecting to get home oxygen set up. He requested portable oxygen to carry around during the daytime. On examination he has markedly decreased air entry, I could not notice any obvious wheezing or crackles. He looks cachectic. No significant leukocytosis but there is left shift probably because of steroids. His elevated bicarbonate confirmed on ABG shows PCO2 of 55, compensated. Patient saturating well on 2-3 L. He was desaturating less than 87% on ambulation. Given his young age, other causes like alpha-1 antitrypsin deficiency, interstitial lung disease should be ruled out. We will get pulmonology opinion. + COPD exacerbation + Thrombocytopenia: Repeat labs in a.m. 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 Pulido is 42 year old male with past medical history significant for COPD, asthma, substance abuse on methadone, anxiety, PTSS who presented to ED with chief complaint of COPD and is satting on room air to 86%. 2 months ago patient started to follow up with pulmonology clinic at [place], was prescribed oxygen at nighttime however every time patient take oxygen off notice desat to 86% on room air. Reported worsening of shortness of breath associated with chest tightness, palpitation, dry cough. Patient presented to ED yesterday and left AGAINST MEDICAL ADVICE. He didn't take the flu vaccine this season because of complication, had the pneumonia vaccine. Problem list #Acute hypoxic and hypercapnic respiratory failure #COPD exacerbation #Thrombocytopenia #Hyperkalemia #Substance abuse on methadone Plan Admit to general medical floor Vitals every shift TRC and nebs Solu-Medrol 40 mg twice daily Azithromycin IV Pulmonary consultation Initial troponins and EKG negative, we'll repeat troponin and EKG 3 given history of tightness chest pain Code full DVT prophylaxis Lovenox and Alps Diet regular
[2017-10-13 23:30] VITALS: BP 140/80
--- NOTE | 2017-10-14 05:08 | Admission Certification ---
Admission Certification Certification Statement - As attending physician, I certify that at the time of - admission, based on clinical presentation, severity of - symptoms, need for further diagnostic testing and - therapeutic interventions, and risk of adverse outcomes - without in-hospital treatment, in my clinical assessment, - this patient requires an acute hospital stay for a minimum - of two nights or longer. I have also considered psychsocial - factors such as support system, advanced age, financial - issues, cognitive issues, and failed out-patient treatments, - past re-admission history, safety of patient, and lack of - compliance as applicable. Specific rationale supporting this admission is: COPD exacerbation
[2017-10-14 06:18] VITALS: BP 150/100
--- NOTE | 2017-10-14 07:39 | PN- Housestaff ---
ArielmerleneJimena 10/14/17 0738: Subjective Follow-up For: COPD exacerbation Opiate dependence on methadone Thrombocytopenia Subjective: Patient is seen and examined this morning, seemed a little jittery asking for his methadone. [facility] was called in this morning and methadone dose(100 mg maintenance) was confirmed Otherwise patient does not complain of shortness of breath and chest discomfort or palpitations. CT chest done yesterday did not show any evidence of lung nodules however patient claimed that the CAT scan done at his pulmonology office at [place] about 2 months ago showed pulmonary nodules will call the radiology and reconfirm. this CAT scans findings, Review of Systems Constitutional: Denies: diaphoresis. EENTM: Denies: blurred vision, double vision, visual changes, eye pain. Cardiovascular: Denies: chest pain, edema, orthopena. Respiratory: Denies: cough, hemoptysis, orthopnea. Gastrointestinal: Denies: abdominal pain, bloating, constipation, diarrhea. Genitourinary: Denies: discharge, frequency, hesitation. Musculoskeletal: Denies: back pain, joint pain, joint swelling. Objective Last 24 Hrs of Vital Signs/I&O Vital Signs Date Time Temp Pulse Resp B/P B/P Pulse O2 O2 Flow FiO2 Mean Ox Delivery Rate 10/14 0618 97.5 51 18 150/100 97 Nasal Cannula 10/14 0000 Nasal 2.0L Cannula 10/13 2330 98.1 85 20 140/80 95 Nasal 2.0L Cannula 10/13 2315 Nasal 2.0L Cannula 10/13 2243 96.8 87 18 117/87 97 Nasal 2.0L Cannula 10/13 2118 96.6 87 18 114/81 97 Nasal 2.0L Cannula 10/13 1956 98 20 142/82 96 Room Air 10/13 1908 98 Nasal 2.0L Cannula 10/13 1715 98.5 110 19 155/92 97 Nasal 3.0L Cannula 10/13 1516 20 96 Nasal 2.0L Cannula Intake & Output 10/14 1600 10/14 0800 10/14 0000 Intake Total 200 0 Output Total Balance 200 0 Intake, Oral 200 0 Patient 130 lb 130 lb Weight Weight Reported by Patient Measurement Method Physical Exam General Appearance: Alert, Oriented X3 Skin: No Rashes, No Breakdown Skin Temp/Moisture Exam: Cool/Dry HEENT: Atraumatic, PERRLA Neck: Supple, No JVD Assessment/Plan Assessment: This is a 42-year-old man with a past medical history significant for childhood asthma, recently diagnosed COPD on nocturnal oxygen,, history of significant smoking quit about a month ago presented to the ED with concerns of shortness of breath and wheezing for the last 2 weeks. Vitals on admission were normal pertinent labs she showed no evidence of leukocytosis Assessment and plan COPD exacerbation * Continue to monitor [facility] on [facility] floor * Continue with IV Solu-Medrol 40 mg twice a day today * Continue with azithromycin * Continue TRC nebs. * If patient remains stable tomorrow we will consider discharging him on tapered prednisone with azithromycin for a total of 5 days History of lung nodules on previous CAT scans * CT chest done yesterday did not show any evidence of lung nodules however patient claimed that the CAT scan done at his pulmonology office at [place] about 2 months ago showed pulmonary nodules will call the radiology and reconfirm. this CAT scans findings Opiate dependence on methadone: * [facility] this morning and methadone dose(100 mg maintenance) was confirmed. Thrombocytopenia * Platelet count improved this morning. DVT prophylaxis with Lovenox Patient is full code Problem List: 1. COPD exacerbation Pain Ratin Pain Location: no pain at this time Pain Goal: Remain pain free Pain Plan: prn tylenol Tomorrow's Labs & Rationales: cbc and bep Jr KAMINSKI,[facility] 10/14/17 1328: Attending MD Review Statement Attending Statement Attending MD Statement: examined this patient, discuss w/resident/PA/ROASTER HELPER, agreed w/resident/PA/ROASTER HELPER, reviewed EMR data (avail), discussed with nursing, discussed with case mgmt, reviewed images, amended to note Attending Assessment/Plan: Patient seen and examined, feels better. Breathing is slightly better today. Patient remains on IV steroids. Patient requesting that he does not have a portable oxygen tank and he wants one to be arranged. Vital Signs Date Time Temp Pulse Resp B/P B/P Pulse O2 O2 Flow FiO2 Mean Ox Delivery Rate 10/14 0618 97.5 51 18 150/100 97 Nasal Cannula 10/14 0000 Nasal 2.0L Cannula 10/13 2330 98.1 85 20 140/80 95 Nasal 2.0L Cannula 10/13 2315 Nasal 2.0L Cannula 10/133 96.8 87 18 117/87 97 Nasal 2.0L Cannula 10/13 2117 96.6 87 18 114/81 97 Nasal 2.0L Cannula 10/13 1956 98 20 142/82 96 Room Air 10/13 1908 98 Nasal 2.0L Cannula 10/13 1715 98.5 110 19 155/92 97 Nasal 3.0L Cannula 10/13 1516 20 96 Nasal 2.0L Cannula 10/13 1418 98.3 119 20 152/100 92 Room Air on exam; aox3, nad. cv; s1, s2, rrr resp; scattered wheeze with overall decreased bs. abd; soft, nt, bs+ ext; no edema. Laboratory Tests 10/14 10/14 1020 0742 Chemistry Sodium Cancelled Potassium Cancelled Chloride Cancelled Carbon Dioxide Cancelled Anion Gap Cancelled BUN Cancelled Creatinine Cancelled BUN/Creatinine Ratio Cancelled Hematology CBC w Diff NO MAN DIFF REQ WBC (4.8 - 10.8 /CUMM) 12.4 H RBC (4.70 - 6.10 /CUMM) 5.41 Hgb (14.0 - 18.0 G/DL) 14.3 Hct (42 - 52 %) 45.0 MCV (80.0 - 94.0 FL) 83.1 MCH (27.0 - 31.0 PG) 26.5 L MCHC (33.0 - 37.0 G/DL) 31.9 L RDW (11.5 - 14.5 %) 15.1 H Plt Count (130 - 400 /CUMM) 423 H MPV (7.4 - 10.4 FL) 7.2 L Gran % (42.2 - 75.2 %) 74.3 Lymphocytes % (20.5 - 51.1 %) 18.4 L Monocytes % (1.7 - 9.3 %) 7.0 Eosinophils % (0 - 5 %) 0 Basophils % (0.0 - 2.0 %) 0.3 Absolute Granulocytes (1.4 - 6.5 /CUMM) 9.2 H Absolute Lymphocytes (1.2 - 3.4 /CUMM) 2.3 Absolute Monocytes (0.10 - 0.60 /CUMM) 0.9 H Absolute Eosinophils (0.0 - 0.7 /CUMM) 0 Absolute Basophils (0.0 - 0.2 /CUMM) 0 Toxicology Urine Opiates Screen (>2000 NG/ML) > 4000.00 H Methadone Screen (>300 NG/ML) > 735 H Barbiturate Screen (>200 NG/ML) < 60 Ur Phencyclidine Scrn (>25 NG/ML) 10.10 Amphetamines Screen (>1000 NG/ML) < 100 U Benzodiazepines Scrn (>200 NG/ML) > 800 H Urine Cocaine Screen (>300 NG/ML) > 1000 H Urine Cannabis Screen (>50 NG/ML) < 5.00 Urines Urine Color (YEL,AMB,STR) YEL Urine Clarity (CLEAR) CLEAR Urine pH (5.0 - 8.0) 6.0 Ur Specific [place] (1.001 - 1.035) 1.025 Urine Protein (NEG,<30 MG/DL) NEG Urine Ketones (NEG) NEG Urine Nitrite (NEG) NEG Urine Bilirubin (NEG) NEG Urine Urobilinogen (0.1 - 1.0 EU/dl) 0.2 Ur Leukocyte Esterase (NEG) NEG Ur Microscopic EXAM NOT REQUIRED Urine Hemoglobin (NEG) NEG Urine Glucose (N MG/DL) NEG 10/14 10/14 10/13 10/13 0635 0120 2017 2014 Blood Gas pH (7.35 - 7.45 PH) 7.39 pCO2 (35 - 45 TORR) 55 H pO2 (80 - 100 TORR) 75 L HCO3 (21 - 28 MEQ/L) 33 H ABG O2 Sat (Measured) (>96.0 %) 95.0 L P-50 (Temp Corrected) N Carboxyhemoglobin (1.5 - 5.0 %) 2.3 O2 Concentration % 2L O2 Delivery Method N/C Chemistry Sodium (137 - 145 mmol/L) 142 143 Potassium (3.5 - 5.1 mmol/L) 4.8 5.2 H Chloride (98 - 107 mmol/L) 94 L 94 L Carbon Dioxide (22 - 30 mmol/L) 36 H 36 H Anion Gap (5 - 16) 13 13 BUN (9 - 20 mg/dL) 18 18 Creatinine (0.7 - 1.2 mg/dL) 0.5 L 0.6 L Estimated GFR (>60 ml/min) > 60 > 60 BUN/Creatinine Ratio (7 - 25 %) 36.0 H 30.0 H Glucose (65 - 99 mg/dL) 138 H Calcium (8.4 - 10.2 mg/dL) 9.6 Total Bilirubin (0.2 - 1.3 mg/dL) 0.6 AST (17 - 59 U/L) 15 L ALT (21 - 72 U/L) 18 L Alkaline Phosphatase (< 127 U/L) 66 Troponin I (<0.11 ng/ml) < 0.01 < 0.01 < 0.01 Total Protein (6.3 - 8.2 g/dL) 7.1 Albumin (3.5 - 5.0 g/dL) 4.2 Globulin (1.9 - 4.2 gm/dL) 2.9 Albumin/Globulin Ratio (1.1 - 2.2 %) 1.4 Miscellaneous Phlebotomy Draw Site RIGHT RADIAL 10/13 1905 Hematology CBC w Diff NO MAN DIFF REQ WBC (4.8 - 10.8 /CUMM) 9.0 RBC (4.70 - 6.10 /CUMM) 5.96 Hgb (14.0 - 18.0 G/DL) 15.6 Hct (42 - 52 %) 49.5 MCV (80.0 - 94.0 FL) 83.1 MCH (27.0 - 31.0 PG) 26.3 L MCHC (33.0 - 37.0 G/DL) 31.6 L RDW (11.5 - 14.5 %) 15.7 H Plt Count (130 - 400 /CUMM) 100 L MPV (7.4 - 10.4 FL) 7.4 Gran % (42.2 - 75.2 %) 80.3 H Lymphocytes % (20.5 - 51.1 %) 12.2 L Monocytes % (1.7 - 9.3 %) 6.9 Eosinophils % (0 - 5 %) 0.2 Basophils % (0.0 - 2.0 %) 0.4 Absolute Granulocytes (1.4 - 6.5 /CUMM) 7.2 H Absolute Lymphocytes (1.2 - 3.4 /CUMM) 1.1 L Absolute Monocytes (0.10 - 0.60 /CUMM) 0.6 Absolute Eosinophils (0.0 - 0.7 /CUMM) 0 Absolute Basophils (0.0 - 0.2 /CUMM) 0 A/P; 42 y/o F with pmh sig for asthma, ch resp failure O2 dependent COPD, substance abuse, currently on methadone admitted with acute COPD exacerbation and acute bronchitis. Patient currently on IV steroids. Will continue the IV steroids. Will continue azithromycin and TRC nebs. Discussed with case management about arranging for portable oxygen tank. DVT prophylaxis: Lovenox. If continues to improve then possible discharge in the next 1-2 days.
[2017-10-14 08:57] LABS: ABSOLUTE BASOPHIL COUNT 0 /CUMM (0.0-0.2); ABSOLUTE EOSINOPHIL COUNT 0 /CUMM (0.0-0.7); ABSOLUTE GRANULOCYTE CT 9.2 /CUMM (1.4-6.5); ABSOLUTE LYMPH COUNT 2.3 /CUMM (1.2-3.4); ABSOLUTE MONOCYTE COUNT 0.9 /CUMM (0.10-0.60); BASOPHIL % 0.3 % (0.0-2.0); EOSINOPHIL % 0 % (0-5); GRANULOCYTE % 74.3 % (42.2-75.2); MEAN CORPUSCULAR HGB 26.5 PG (27.0-31.0); MEAN CORPUSCULAR HGB CONC 31.9 G/DL (33.0-37.0); MEAN CORPUSCULAR VOLUME 83.1 FL (80.0-94.0); MEAN PLATELET VOLUME 7.2 FL (7.4-10.4); RBC DISTRIBUTION WIDTH 15.1 % (11.5-14.5); RED BLOOD CELL CT 5.41 /CUMM (4.70-6.10); WHITE BLOOD CELL COUNT 12.4 /CUMM (4.8-10.8)
[2017-10-14 09:20] LABS: PLATELET COUNT 423 /CUMM (130-400)
[2017-10-14 15:10] VITALS: BP 128/90
[2017-10-14 22:23] VITALS: BP 118/80
[2017-10-15 07:13] VITALS: BP 120/78
--- NOTE | 2017-10-15 07:46 | PN- Housestaff ---
NellyJimena 10/15/17 0746: Subjective Follow-up For: COPD exacerbation Opiate dependence on methadone Thrombocytopenia Complaints: no complaints Subjective: Patient is seen and examined this morning, seems better than yesterday denies any chest discomfort or breathing any palpitations. Vitals are stable , remained afebrile overnight If patient remains stable will discharge the patient home today on tapered prednisone and azithromycin for a total of 5 days. Portable oxygen tank will be arranged on discharge. Review of Systems Constitutional: Denies: diaphoresis, fever, malaise. EENTM: Denies: blurred vision, double vision, eye pain. Cardiovascular: Denies: chest pain, edema. Respiratory: Denies: cough, hemoptysis, orthopnea. Gastrointestinal: Denies: abdominal pain, bloating, constipation, diarrhea. Genitourinary: Denies: discharge, frequency. Objective Last 24 Hrs of Vital Signs/I&O Vital Signs Date Time Temp Pulse Resp B/P B/P Pulse O2 O2 Flow FiO2 Mean Ox Delivery Rate 10/15 0836 99 Nasal 2.0L Cannula 10/15 0713 97.8 72 16 120/78 97 Nasal 2.0L Cannula 10/15 0000 Nasal 2.0L Cannula 10/14 2223 97.4 70 14 118/80 97 Nasal 2.0L Cannula 10/14 1923 Nasal 2.0L Cannula 10/14 1510 98.0 88 20 128/90 95 Nasal 2.0L Cannula Physical Exam General Appearance: Alert, Oriented X3 Skin: No Rashes, No Breakdown Skin Temp/Moisture Exam: Warm/Dry HEENT: Atraumatic, PERRLA, EOMI Neck: Supple, No JVD Cardiovascular: Regular Rate, Normal S1, Normal S2 Lungs: Clear to Auscultation Abdomen: Normal Bowel Sounds, Soft, No Tenderness Neurological: Normal Gait, Normal Speech Current Medications: Current Medications Sig/Tab Start time Last Medication Dose Route Stop Time Status Admin Acetaminophen 650 MG Q6P PRN 10/14 0115 AC PO Albuterol Sulfate 3 ML BID 10/14 2200 AC 10/15 INH 0831 Albuterol Sulfate 2 PUF Q4H PRN 10/14 0115 AC INH Alprazolam 2 MG BID 10/14 1000 AC 10/15 PO 10/21 0959 0946 Azithromycin 500 MG DAILY 10/14 1000 AC 10/15 Dextrose/Water 250 ML IV 0946 Enoxaparin Sodium 40 MG DAILY 10/14 1000 AC 10/15 SC 0945 Guaifenesin 600 MG Q12 10/14 1000 AC 10/15 PO 0946 Ipratropium [place] 2.5 ML BID 10/14 2200 AC 10/15 INH 0831 Methadone HCl 100 MG 0700 10/15 0700 AC 10/15 PO 0609 Methadone HCl 100 MG DAILY 10/14 1000 DC 10/14 PO 0844 Methylprednisolone 40 MG Q12 10/14 1000 AC 10/15 IV 0946 Last 24 Hrs of Lab/Ortega Results Last 24 Hrs of Labs/Mics: Laboratory Tests 10/15/17 0711: Anion Gap 11, Estimated GFR > 60, BUN/Creatinine Ratio 38.0 H, CBC w Diff NO MAN DIFF REQ, RBC 5.31, MCV 82.6, MCH 26.3 L, MCHC 31.9 L, RDW 15.1 H, MPV 7.1 L, Gran % 81.2 H, Lymphocytes % 12.5 L, Monocytes % 6.0, Eosinophils % 0.2, Basophils % 0.1, Absolute Granulocytes 10.4 H, Absolute Lymphocytes 1.6, Absolute Monocytes 0.8 H, Absolute Eosinophils 0, Absolute Basophils 0 10/14/17 1020: Urine Opiates Screen > 4000.00 H, Methadone Screen > 735 H, Barbiturate Screen < 60, Ur Phencyclidine Scrn 10.10, Amphetamines Screen < 100, U Benzodiazepines Scrn > 800 H, Urine Cocaine Screen > 1000 H, Urine Cannabis Screen < 5.00, Urine Color YEL, Urine Clarity CLEAR, Urine pH 6.0, Ur Specific Ste[place] 1.025, Urine Protein NEG, Urine Ketones NEG, Urine Nitrite NEG, Urine Bilirubin NEG, Urine Urobilinogen 0.2, Ur Leukocyte Esterase NEG, Ur Microscopic EXAM NOT REQUIRED, Urine Hemoglobin NEG, Urine Glucose NEG Assessment/Plan Assessment: This is a 42-year-old man with a past medical history significant for childhood asthma, recently diagnosed COPD on nocturnal oxygen,, history of significant smoking quit about a month ago presented to the ED with concerns of shortness of breath and wheezing for the last 2 weeks. Vitals on admission were normal pertinent labs she showed no evidence of leukocytosis Assessment and plan COPD exacerbation * Continue to monitor patient on [facility] floor * Will decrease IV Solu-Medrol to 40 mg daily today * Continue with azithromycin * Continue TRC nebs. * If patient remains stable will discharge the patient home today on tapered prednisone and azithromycin for a total of 5 days. Portable oxygen tank will be arranged on discharge. History of lung nodules on previous CAT scans * CT chest done yesterday did not show any evidence of lung nodules however patient claimed that the CAT scan done at his pulmonology office at [place] about 2 months ago showed pulmonary nodules. * Patient will follow-up with his garland maker as an outpatient. Opiate dependence on methadone: * [facility] this morning and methadone dose(100 mg maintenance) was confirmed. * Continue with maintenance dose of methadone. Thrombocytopenia * Resolved. DVT prophylaxis with subcutaneous Lovenox Patient is full code DVT prophylaxis with Lovenox Patient is full code Problem List: 1. COPD exacerbation 2. Hypoxia Pain Ratin Pain Location: No pain at this time Pain Goal: Remain pain free Pain Plan: When necessary Tylenol Tomorrow's Labs & Rationales: NO NEED OF LABS PT WILL BE DISCHARGED TODAY. Jr KAMINSKI,[facility] 10/15/17 1150: Attending MD Review Statement Attending Statement Attending MD Statement: examined this patient, discuss w/resident/PA/PRICE CHANGER, agreed w/resident/PA/PRICE CHANGER, discussed with family, reviewed EMR data (avail), discussed with nursing, discussed with case mgmt, reviewed images, amended to note Attending Assessment/Plan: Patient seen and examined, overall doing much better. Now back to baseline oxygen. Breathing has improved. Patient requesting that be should arrange for portable oxygen. Spoke with case management who is working on that. He can be switched to oral prednisone with a taper. He is otherwise medically stable for discharge. He is also requesting referral to psychiatric so that he can follow- up with them for his anxiety and substance abuse issue. Patient is on methadone which would be continued through his clinic. Medically stable for discharge home today.
[2017-10-15 08:21] LABS: ABSOLUTE BASOPHIL COUNT 0 /CUMM (0.0-0.2); ABSOLUTE EOSINOPHIL COUNT 0 /CUMM (0.0-0.7); ABSOLUTE GRANULOCYTE CT 10.4 /CUMM (1.4-6.5); ABSOLUTE LYMPH COUNT 1.6 /CUMM (1.2-3.4); ABSOLUTE MONOCYTE COUNT 0.8 /CUMM (0.10-0.60); BASOPHIL % 0.1 % (0.0-2.0); EOSINOPHIL % 0.2 % (0-5); GRANULOCYTE % 81.2 % (42.2-75.2); HEMATOCRIT 43.8 % (42-52); MEAN CORPUSCULAR HGB 26.3 PG (27.0-31.0); MEAN CORPUSCULAR HGB CONC 31.9 G/DL (33.0-37.0); MEAN CORPUSCULAR VOLUME 82.6 FL (80.0-94.0); MEAN PLATELET VOLUME 7.1 FL (7.4-10.4); PLATELET COUNT 344 /CUMM (130-400); RBC DISTRIBUTION WIDTH 15.1 % (11.5-14.5); RED BLOOD CELL CT 5.31 /CUMM (4.70-6.10); WHITE BLOOD CELL COUNT 12.9 /CUMM (4.8-10.8)
[2017-10-15] MEDS ORDERED: AZITHROMYCIN500 M3 PO (09:31)
[2017-10-15] MEDS ORDERED: PREDNISONE10 M2 PO (09:31)
--- NOTE | 2017-10-15 09:32 | Patient Discharge Instructions ---
Discharge Instructions General Discharge Information You were seen/treated for: COPD exacerbation Special Instructions: Please follow-up with your primary care physician within 1 week after discharge. Please follow-up with your case management associate in 1-2 weeks after discharge. PLEASE FOLLOW UP WITH OUTPATIENT PSYCHIATRY OUT PATIENT. Please call outpatient psychiatry at a number [phone] make an appointment. Diet Continue normal diet: Yes Activity Activity Self Limited: Yes Acute Coronary Syndrome Inclusion Criteria At DC or during hospital stay patient has or had the following: ACS DIAGNOSIS No Discharge Core Measures Meds if any: Prescribed or Continued at Discharge Meds if any: NOT Prescribed or Continued at Discharge Congestive Heart Failure Inclusion Criteria At DC or during hospital stay patient has or had the following: CHF DIAGNOSIS No Discharge Core Measures Meds if any: Prescribed or Continued at Discharge Meds if any: NOT Prescribed or Continued at Discharge Cerebrovascular accident Inclusion Criteria At DC or during hospital stay patient has or had the following: CVA/TIA Diagnosis No Discharge Core Measures Meds if any: Prescribed or Continued at Discharge Meds if any: NOT Prescribed or Continued at Discharge Venous thromboembolism Inclusion Criteria VTE Diagnosis No VTE Type NONE VTE Confirmed by (Test) NONE Discharge Core Measures - Per Current guidelines, there needs to be overlap - treatment for the first 5 days of Warfarin therapy. - If discharged on Warfarin prior to 5 days of - overlap therapy, the patient will need to be - assessed for post discharge needs including - *Post discharge parental anticoagulation - *Warfarin and/or parental anticoagulation education - *Follow up date to check INR post discharge At least 5 days overlap therapy as Inpatient No Meds if any: Prescribed or Continued at Discharge Note: Overlap Therapy is Warfarin and Anticoagulant Meds if any: NOT Prescribed or Continued at Discharge
--- NOTE | 2017-10-15 10:08 | Discharge Summary ---
Visit Information Visit Dates Admission Date: 10/13/17 Discharge Date: 10/15/17 Hospital Course Course Attending Physician: Mirela Norris MD Primary Care Physician: Ermias KAMINSKI,[facility] Course: This is a 42-year-old man with a past medical history significant for childhood asthma, recently diagnosed COPD on nocturnal oxygen,, history of significant smoking quit about a month ago presented to the ED with concerns of shortness of breath and wheezing for the last 2 weeks. vitals on admission: Afebrile, tachycardic on arrival but improved to 80s, RR 20 , blood pressure 142/82, saturating 92% on 2 L, desaturated less than 87% on ambulating. Pertinent labs on admission, normal WBC, H&H stable with thrombocytopenia platelet 100, which decreased from 367 , BeP normal unremarkable, normal LFTs troponin less than 0.01, AB.39/55/75/33 on [address] chest without IV contrast:No acute abnormality CT scan of the chest. There are pedunculated cysts of the kidneys. Largest on the left upper pole measuring 4.3 cm. There is a pedunculated cyst at the posterior midpole of the right kidney measuring 1.9 cm. Following problems were addressed while patient was on was on the [facility]: Acute on chronic respiratory failure due to COPD exacerbation: Patient was admitted to general floor, patient was initially kept on IV Solu- Medrol that was gradually tapered off prednisone. Azithromycin was continued for its anti-inflammatory properties. Patient received [facility] nebs. Clinical condition improved within 1-2 days after the admission, patient was discharged home on tapered prednisone and azithromycin for a total of 5 days. Portable oxygen tank was arranged on discharge History of lung nodules on previous CAT scans CT chest done did not show any evidence of lung nodules however patient claimed that the CAT scan done at his pulmonology office at [place] about 2 months ago showed pulmonary nodules. Patient would follow-up with his swine extension field specialist as an outpatient. History of opiate dependence on methadone After confirming the dose of [facility]adone [facility] (100 mg maintenance) was restarted in the hospital Thrombocytopenia Resolved on discharge DVT prophylaxis with subcutaneous Lovenox Patient is full code Allergies: Coded Allergies: gabapentin (From NEURONTIN) (Severe, HIVES 10/12/17) naproxen (Severe, HIVES 10/12/17) tramadol (From ULTRAM) (Severe, HIVES 10/12/17) Disposition Summary Disposition Principal Diagnosis: Acute on chronic respiratory failure due to COPD exacerbation Additional Diagnosis: Opiate dependence on methadone Discharge Disposition: home or self care Discharge Instructions General Discharge Information Code Status: Full Code Patient's Diet: Regular diet Patient's Activity: As tolerated Follow-Up Instructions/Appts: Please follow-up with your primary care physician within 1 week after discharge. Please follow-up with your swine extension field specialist in 1-2 weeks after discharge. PLEASE FOLLOW UP WITH OUTPATIENT PSYCHIATRY OUT PATIENT. Please call outpatient psychiatry at a number [phone] make an appointment. Medications at Discharge Discharge Medications: Continue taking these medications: Ipratropium/Albuterol Sulfate (Iprat-Albut 0.5-3(2.5) MG/3 Ml) 0.5 MG-3 MG (2.5 MG BASE)/3 ML AMPUL.NEB 3 Milliliters Inhale through mouth Q6H as needed for WHEEZING Qty = 270 Comments: Last Taken: 10/15/17 Time: 8:30 AM Alprazolam (Alprazolam) 2 MG TABLET 1 Tablet ORAL TWICE DAILY Qty = 60 Comments: Last Taken: 10/15/17 Time: 9:46 AM Albuterol Sulfate (Proair Hfa) 90 MCG HFA.AER.AD 2 Puff Inhale through mouth Q4H as needed for WHEEZING Qty = 9 Comments: Last Taken: 10/15/17 Time: 8:30AM Methadone HCl (Methadone HCl) 10 MG/ML ORAL.CONC 100 Milligram ORAL DAILY Comments: Last Taken: 10/15/17 Time: 6:00AM Start taking the following new medications: Prednisone (Prednisone) 10 MG TABLET 1 Tablet ORAL SEE INSTRUCTIONS Qty = 26 No Refills Instructions: TAKE 4 TABS X 3 DAYS 3 TABS X 3 DAYS 2 TABS X 3 DAYS 1 TAB X 3 DAYS AND THEN STOP ..... Comments: IV SOLUMEDROL ADMINISTERED Azithromycin (Azithromycin) 500 MG TABLET 1 Tablet ORAL DAILY Qty = 3 No Refills Comments: Last Taken: 10/15/17 Time: 9:46 AM Alprazolam (Xanax XR) 2 MG TAB.ER.24H 1 Tablet ORAL BID Qty = 10 No Refills Comments: Last Taken:10/15/17 Time:9:45 AM Copies To: Ziggy Monson MD
[2017-10-15] MEDS ORDERED: XANAX XR2 M1 PO (15:45)
[2017-10-15 15:52] VITALS: BP 140/78
== END 2017-10-15 16:10 | DRG 190 ==
LOC: ERH 14:08 → 2NB 21:15 → ERHI 21:15 → ENRESERV 22:36 → ENTRNSPT 22:51 → 2NB 23:14 → CMPTRNSPT 23:25 → 2NB 10-15 09:41 → ENTRNSPT 10-15 15:56 → 2NB 10-15 16:10 → CMPTRNSPT 10-15 16:20
PROVIDERS: Physician Assistant Medical; Student in an Organized Health Care Education/Training Program
DX: J44.1 Chronic obstructive pulmonary disease with (acute) exacerbation (principal); J96.00 Acute respiratory failure, unspecified whether with hypoxia or hypercapnia; R64 Cachexia; E44.0 Moderate protein-calorie malnutrition; F11.20 Opioid dependence, uncomplicated; D69.6 Thrombocytopenia, unspecified; N28.1 Cyst of kidney, acquired; Z68.1 Body mass index [BMI] 19.9 or less, adult; F19.20 Other psychoactive substance dependence, uncomplicated; Z87.891 Personal history of nicotine dependence; R91.8 Other nonspecific abnormal finding of lung field; G89.29 Other chronic pain; F41.9 Anxiety disorder, unspecified; J44.0 Chronic obstructive pulmonary disease with (acute) lower respiratory infection; J20.9 Acute bronchitis, unspecified
CPT/HCPCS: 2NBP; 36415; 80307; 81003; 82436; 87040; 87804; 87804-59; 93005; 93010; J0456; J1650; J2920; J3490; J7060

== ENCOUNTER 2017-10-25 15:11 | Inpatient (IN) | payer OTHER ==
[~2017-10-25] VITALS: Ht 177.8 cm; Wt 59.0 kg
[~2017-10-25 15:11] MED LIST: ALPRAZOLAM2 M2 PO; AZITHROMYCIN500 M3 PO; IPRAT-ALBUT 0.5-3 ML INH; METHADONE10 MG/1 M2 PO; PREDNISONE10 M2 PO; PROAIR HFA8.5 GM INH; XANAX XR2 M1 PO
--- NOTE | 2017-10-25 16:12 | ED DYSPNEA/ASTHMA COMPLAINT ---
History of Present Illness General Chief Complaint: Dyspnea (COPD, CHF, Other) Stated Complaint: CP/ SOB HX COPD & ASTHMA, MIGRAINE Source: patient, old records Exam Limitations: no limitations Allergies Coded Allergies: gabapentin (From NEURONTIN) (Severe, HIVES 10/12/17) naproxen (Severe, HIVES 10/12/17) tramadol (From ULTRAM) (Severe, HIVES 10/12/17) Reconcile Medications Albuterol Sulfate (Proair Hfa) 90 MCG HFA.AER.AD 2 PUF INH Q4H PRN WHEEZING ( Reported) Alprazolam 2 MG TABLET 1 TAB PO BID ANXIETY (Reported) Alprazolam (Xanax XR) 2 MG TAB.ER.24H 1 TAB PO BID ANXIETY Azithromycin 500 MG TABLET 1 TAB PO DAILY COPD Ipratropium/Albuterol Sulfate (Iprat-Albut 0.5-3(2.5) MG/3 Ml) 0.5 MG-3 MG (2.5 MG BASE)/3 ML AMPUL.NEB 3 ML INH Q6H PRN WHEEZING (Reported) Methadone HCl 10 MG/ML ORAL.CONC 100 MG PO DAILY MENTAL HEALTH (Reported) Prednisone 10 MG TABLET 1 TAB PO SEE ADMIN CRITERIA COPD TAKE 4 TABS X 3 DAYS 3 TABS X 3 DAYS 2 TABS X 3 DAYS 1 TAB X 3 DAYS AND THEN STOP ..... Triage Nurses Notes Reviewed? yes Onset: Gradual Duration: week(s): (1), constant, getting worse Timing: recent history Severity: moderate Activities at Onset: none Prior Episodes/Possible Cause: frequent episodes Modifying Factors: Improves With: rest. Worsens With: movement. Associated Symptoms: cough, fever, wheezing HPI: 42-year-old man with a past medical history significant for childhood asthma, recently diagnosed COPD on nocturnal oxygen,, history of significant smoking quit about a month ago recently discharged from this hospital 10 days ago for the same presents complaining of progressively worsening shortness of breath despite using his oxygen he is normally on 2 L however states he's had increased to 3. Also reports that he had a fever of 101 earlier today and a nonproductive cough. He reports anterior chest pain which she reports is secondary from his breathing and he is also complaining of frontal headache from his oxygen tank at home. He denies headache at this time no leg swelling no hemoptysis. (Hans Connell) Vital Signs & Intake/Output Vital Signs & Intake/Output Vital Signs Date Time Temp Pulse Resp B/P B/P Pulse O2 O2 Flow FiO2 Mean Ox Delivery Rate 10/25 194 96.6 100 16 125/84 96 Nasal 2.0L Cannula 10/25 1936 94 Nasal 2.0L Cannula 10/25 1800 98.3 120 24 135/98 98 Nasal 3.0L Cannula 10/25 1642 99 Nasal 2.0L Cannula 10/25 1537 98.6 121 24 167/111 98 Nasal 3.0L Cannula (Letty KAMINSKI,Lorenzo Castaneda) Past History Travel History Traveled to [place] past 21 day No Medical History Any Pertinent Medical History? see below for history Neurological: NONE EENT: NONE Cardiovascular: NONE Respiratory: asthma, COPD Gastrointestinal: NONE Hepatic: NONE Renal: NONE Musculoskeletal: NONE Psychiatric: methadone Endocrine: NONE Blood Disorders: NONE Cancer(s): NONE REGIONAL FACILITIES MANAGER/Reproductive: NONE Surgical History Surgical History: non-contributory Psychosocial History Who do you live with Spouse What is your primary language Montserratian Tobacco Use: Quit >30 days ago Family History Hx Contributory? No (Hans Connell) Review of Systems Review of Systems Constitutional: Reports: see HPI. Comments Review of systems: See HPI, All other systems negative. Constitutional, no chills no fever, HEENT: no sore throat no congestion Cardiovascular: No chest pain , no palpitation Skin: no rashes, no change in skin Respiratory: No dyspnea no cough GI: No nausea no vomiting, no diarrhea, : No dysuria No hematuria, no frequency Muscle skeletal: No joint pain, back pain, no neck pain, Neurologic: , no headache Heme/endocrine: No bruising (Hans Connell) Physical Exam Physical Exam General Appearance: well developed/nourished, alert, awake Respiratory: normal breath sounds, chest non-tender Comments: Well-developed well-nourished person in no acute distress HEENT: Normal EENT exam; PERRL, EOMI HEAD is atraumatic. moist mucous membranes. Neck: Supple, normal range of motion Back: Nontender, no CVA tenderness. Full range of motion Cardiovascular: Regular rate and rhythms no murmurs, normal JVP Respiratory: Chest nontender.There were no bony deformities, no asymmetry. No respiratory distress. diminished breath sounds bilaterally Abdomen: Soft, nontender nondistended, no appreciable organomegaly. Normal bowel sounds. No rebound/guarding, No ascites. Extremity: No edema, full range of motion of extremities Neuro: Alert oriented x3, motor sensory normal, There were no obvious focal neurologic abnormalities. Skin: No appreciable rash on exposed skin, skin is warm and dry. Psych: Mood and affect is normal, memory and judgment is normal. Core Measures ACS in differential dx? Yes CVA/TIA Diagnosis No Sepsis Present: No Sepsis Focused Exam Completed? No (Tomer RAMSEY,Hans) Progress Differential Diagnosis: asthma, AMI, bronchitis, costochondritis, CHF, COPD, pulmonary embolism, pneumonia, pneumothorax, unstable angina Diagnostic Imaging: Viewed by Me: Radiology Read. Discussed w/RAD: Radiology Read. Radiology Impression: PATIENT: JAXON PULIDO PRESENT AGE: 42 PATIENT ACCOUNT NO: [id number] : 75 LOCATION: [facility] ORDERING PHYSICIAN: Hans RAMSEY SERVICE DATE: 10/25/17 EXAM TYPE: RAD - XRY- PORTABLE CHEST XRAY EXAMINATION: CHEST 1 VIEW CLINICAL INFORMATION: Shortness breath, cough, fever. COMPARISON: 10/17/2017. TECHNIQUE: An AP view of the chest is provided. FINDINGS: The cardiac silhouette is not enlarged. The mediastinal and hilar contours are unremarkable. There are no pneumothoraces. There is blunting of both lateral costophrenic angles. There are no consolidations. The osseous structures are unremarkable. IMPRESSION: No consolidations. Blunting of both lateral costophrenic angles likely merchandising representative of pleural thickening, though small pleural effusions cannot be excluded. DICTATED BY: Luis Eduardo Whyte MD DATE/TIME DICTATED:10/25/171714 MUSIC ORCHESTRATOR:JACQUIE DATE/TIME TRANSCRIBED:10/25/171714 CONFIDENTIAL, DO NOT COPY WITHOUT APPROPRIATE AUTHORIZATION. <Electronically signed in Other Vendor System> SIGNED BY: Luis Eduardo Whyte MD 10/25/171718, PATIENT: JAXON PULIDO PRESENT AGE: 42 PATIENT ACCOUNT NO: [id number] : 75 LOCATION: ER ORDERING PHYSICIAN: Hans RAMSEY SERVICE DATE: 10/25/17 EXAM TYPE: CAT - CTA CHEST-PULMONARY EMBOLISM EXAMINATION: CT PULMONARY EMBOLISM STUDY CLINICAL INFORMATION: Cough, hypoxia. COMPARISON: 10/13/2017. TECHNIQUE: Contiguous helical images of the chest were obtained following the administration of IV contrast. Multiplanar reconstructions were performed. MIPS were obtained and reviewed. DLP: 212 mGy-cm. CONTRAST: 95 mL of Optiray 350 were administered without incident. FINDINGS: The heart is of normal size. There is no pericardial effusion. The great vessels are unremarkable. Specifically, there is no pulmonary arterial filling defect. There is no CT evidence for pulmonary embolism. There are no chest wall masses. Review of lung windows demonstrates that there are neither pleural effusions nor pneumothoraces. There are no consolidations. There are no pulmonary parenchymal nodules. Limited evaluation of the upper abdomen demonstrates that the liver is of normal size and attenuation. Within the midportion of the right lobe on image 500/574, there is an approximately 8 mm area of enhancement. Normal adrenal glands are identified. There is stable bilateral renal cysts. IMPRESSION: No CT evidence for pulmonary embolism. No acute airspace disease. 8mm area of enhancement within the right lobe of the liver. This is nonspecific, but could correspond to an hemangioma. Consider correlation with abdominal MRI for further tissue characterization. DICTATED BY: Luis Eduardo Whyte MD DATE/TIME DICTATED:10/25/171923 MUSIC ORCHESTRATOR:JACQUIE DATE/TIME TRANSCRIBED:10/25/171923 CONFIDENTIAL, DO NOT COPY WITHOUT APPROPRIATE AUTHORIZATION. <Electronically signed in Other Vendor System> SIGNED BY: Luis Eduardo Whyte MD 10/25/171937 Initial ED EKG: normal intervals, normal p-waves, normal QRS complex, normal sinus rhythm (Hans Connell) Plan of Care: Orders Procedure Date/time Status Regular Diet 10/26 B Active Misc Message 10/25 1932 Active ED Holding Orders 10/25 1932 Active Admit to inpatient 10/25 193 Active Vital Signs 10/25 193 Active Code Status 10/25 193 Active URINE DRUGS OF ABUSE 10/25 1908 Active URINALYSIS 10/25 190 Active RAPID VIRAL INFLUENZA A 10/25 162 Complete BLOOD CULTURE 10/25 162 Active TROPONIN LEVEL 10/25 162 Complete COMPREHENSIVE METABOLIC PANEL 10/25 162 Complete CBC WITHOUT DIFFERENTIAL 10/25 162 Complete B-TYPE NATRIURETIC PEP (BNP) 10/25 1626 Complete EKG 10/25 1513 Active Laboratory Tests 10/25/17 1705: Anion Gap 9, Estimated GFR > 60, BUN/Creatinine Ratio 32.0 H, Glucose 81, Calcium 9.5, Total Bilirubin 1.0, AST 22, ALT 29, Alkaline Phosphatase 60, Troponin I < 0.01, Ile-C-Qnokcydwcba Pept 41.4, Total Protein 6.7, Albumin 4.0, Globulin 2.7, Albumin/Globulin Ratio 1.5, CBC w Diff NO MAN DIFF REQ, RBC 5.53, MCV 84.2, MCH 26.5 L, MCHC 31.5 L, RDW 15.3 H, MPV 7.1 L, Gran % 68.3, Lymphocytes % 21.5, Monocytes % 7.7, Eosinophils % 2.1, Basophils % 0.4, Absolute Granulocytes 7.9 H, Absolute Lymphocytes 2.5, Absolute Monocytes 0.9 H, Absolute Eosinophils 0.2, Absolute Basophils 0 Microbiology 10/25 1809 NASOPHARYN: Influenza Virus A & B Rapid Smear - COMP 10/25 175 BLOOD: Blood Culture - RECD 10/25 170 BLOOD: Blood Culture - RECD Labs ordered old records reviewed x-ray ordered. Ordered patient medicated with soluMedrol DuoNeb. On repeat evaluation patient reports feeling significantly improved after breathing treatment. I discussed with him at length all his lab results he is 100% on 3 L when attempted ambulation the patient's oxygen saturation dropped to 93 on 2 however he became notably dyspneic short of breath tachycardic into the 120s and 130s. Case discussed with Dr. Saenz agrees with plan (Hans Connell) (Letty KAMINSKI,Lorenzo Castaneda) Departure Departure Time of Disposition: 1838 Disposition: STILL A PATIENT Condition: Stable Clinical Impression Primary Impression: COPD exacerbation Secondary Impressions: Liver hemangioma Referrals: Ziggy Monson MD (PCP/Family) Departure Forms: Customer Survey General Discharge Information Admission Note Spoke With: Luke Villa MD Documentation of Exam: Documentation of any treatments & extenuating circumstances including Concerns Regarding Discharge (functional status, medication knowledge or non-compliance, living conditions, etc.) that warrant an admission rather than observation: Patient notably asymptomatic dyspneic short of breath with ambulation on his baseline 2 L he will require oxygen 3 L, pULMONOLGY consult was before G Ms. IV steroids premature discharge and be medically harmful (Hans Connell) PA/SCIENCE FACULTY MEMBER Co-Sign Statement Statement: ED Attending supervision documentation- [] I saw and evaluated the patient. I have also reviewed all the pertinent lab results and diagnostic results. I agree with the findings and the plan of care as documented in the PA's/SCIENCE FACULTY MEMBER's documentation. [X] I have reviewed the ED Record and agree with the PA's/SCIENCE FACULTY MEMBER's documentation. [] Additions or exceptions (if any) to the PAs/SCIENCE FACULTY MEMBER's note and plan are summarized below: [] (Letty KAMINSKI,Lorenzo Castaneda) Critical Care Note Critical Care Note Critical Care Time: non-applicable (Hans Connell)
--- NOTE | 2017-10-25 17:19 | RADIOLOGY REPORT ---
EXAMINATION: CHEST 1 VIEW CLINICAL INFORMATION: Shortness breath, cough, fever. COMPARISON: 10/17/2017. TECHNIQUE: An AP view of the chest is provided. FINDINGS: The cardiac silhouette is not enlarged. The mediastinal and hilar contours are unremarkable. There are no pneumothoraces. There is blunting of both lateral costophrenic angles. There are no consolidations. The osseous structures are unremarkable. IMPRESSION: No consolidations. Blunting of both lateral costophrenic angles likely business process representative of pleural thickening, though small pleural effusions cannot be excluded.
[2017-10-25 17:41] LABS: ABSOLUTE BASOPHIL COUNT 0 /CUMM (0.0-0.2); ABSOLUTE EOSINOPHIL COUNT 0.2 /CUMM (0.0-0.7); ABSOLUTE GRANULOCYTE CT 7.9 /CUMM (1.4-6.5); ABSOLUTE LYMPH COUNT 2.5 /CUMM (1.2-3.4); ABSOLUTE MONOCYTE COUNT 0.9 /CUMM (0.10-0.60); BASOPHIL % 0.4 % (0.0-2.0); EOSINOPHIL % 2.1 % (0-5); GRANULOCYTE % 68.3 % (42.2-75.2); HEMATOCRIT 46.5 % (42-52); MEAN CORPUSCULAR HGB 26.5 PG (27.0-31.0); MEAN CORPUSCULAR HGB CONC 31.5 G/DL (33.0-37.0); MEAN CORPUSCULAR VOLUME 84.2 FL (80.0-94.0); MEAN PLATELET VOLUME 7.1 FL (7.4-10.4); PLATELET COUNT 300 /CUMM (130-400); RBC DISTRIBUTION WIDTH 15.3 % (11.5-14.5); RED BLOOD CELL CT 5.53 /CUMM (4.70-6.10); WHITE BLOOD CELL COUNT 11.5 /CUMM (4.8-10.8)
--- NOTE | 2017-10-25 19:38 | CT SCAN REPORT ---
EXAMINATION: CT PULMONARY EMBOLISM STUDY CLINICAL INFORMATION: Cough, hypoxia. COMPARISON: 10/13/2017. TECHNIQUE: Contiguous helical images of the chest were obtained following the administration of IV contrast. Multiplanar reconstructions were performed. MIPS were obtained and reviewed. DLP: 212 mGy-cm. CONTRAST: 95 mL of Optiray 350 were administered without incident. FINDINGS: The heart is of normal size. There is no pericardial effusion. The great vessels are unremarkable. Specifically, there is no pulmonary arterial filling defect. There is no CT evidence for pulmonary embolism. There are no chest wall masses. Review of lung windows demonstrates that there are neither pleural effusions nor pneumothoraces. There are no consolidations. There are no pulmonary parenchymal nodules. Limited evaluation of the upper abdomen demonstrates that the liver is of normal size and attenuation. Within the midportion of the right lobe on image 500/574, there is an approximately 8 mm area of enhancement. Normal adrenal glands are identified. There is stable bilateral renal cysts. IMPRESSION: No CT evidence for pulmonary embolism. No acute airspace disease. 8mm area of enhancement within the right lobe of the liver. This is nonspecific, but could correspond to an hemangioma. Consider correlation with abdominal MRI for further tissue characterization.
--- NOTE | 2017-10-25 20:45 | History & Physical ---
Larry KAMINSKI,[facility] 10/25/172044: General Information and HPI MD Statement: I have seen and personally examined JAXON ALEXANDRA and documented this H&P. The patient is a 42 year old M who presented with a patient stated chief complaint of [shortness of breath]. Source of Information: patient History of Present Illness: 42-year-old male pmhx: childhood asthma, recently diagnosed COPD on 2L nighttime oxygen, and recently quit smoking 2 months ago presenting for shortness of breath. The patient was recently discharged 10/15. The patient states that the nighttime oxygen has been making his headache and shortness of breath worse. The patient states that he finishes azithromycin course and when his steroid taper ended 2 days ago he immediately started getting progressively worsening shortness breath. He states that he cannot breathe in the emergency department this time. He also complains of left chest pain which is a tightening pain that occurs intermittently. His significant other thinks that his shortness of breath and chest pain may partially be due to his anxiety. The patient states that alprazolam has helped with his breathing. He states that the outpatient psychologist that he was referred to across the street from [facility] was not able to prescribe Xanax. He has a history of substance abuse currently on methadone from [facility] in [place]. He also endorses a fever 101 at home and recent 60lb weight loss in the past months. He denies any cough, light headedness, or dizziness n/v, abd pain, . Allergies/Medications Allergies: Coded Allergies: gabapentin (From NEURONTIN) (Severe, HIVES 10/12/17) naproxen (Severe, HIVES 10/12/17) tramadol (From ULTRAM) (Severe, HIVES 10/12/17) Home Med list Albuterol Sulfate (Proair Hfa) 90 MCG HFA.AER.AD 2 PUF INH Q4H PRN WHEEZING ( Reported) Alprazolam 2 MG TABLET 1 TAB PO BID ANXIETY (Reported) Alprazolam (Xanax XR) 2 MG TAB.ER.24H 1 TAB PO BID ANXIETY Azithromycin 500 MG TABLET 1 TAB PO DAILY COPD Ipratropium/Albuterol Sulfate (Iprat-Albut 0.5-3(2.5) MG/3 Ml) 0.5 MG-3 MG (2.5 MG BASE)/3 ML AMPUL.NEB 3 ML INH Q6H PRN WHEEZING (Reported) Methadone HCl 10 MG/ML ORAL.CONC 100 MG PO DAILY MENTAL HEALTH (Reported) Prednisone 10 MG TABLET 1 TAB PO SEE ADMIN CRITERIA COPD TAKE 4 TABS X 3 DAYS 3 TABS X 3 DAYS 2 TABS X 3 DAYS 1 TAB X 3 DAYS AND THEN STOP ..... Past History Travel History Traveled to [place] past 21 day No Medical History Neurological: NONE EENT: NONE Cardiovascular: NONE Respiratory: asthma, COPD Gastrointestinal: NONE Hepatic: NONE Renal: NONE Musculoskeletal: NONE Psychiatric: methadone Endocrine: NONE Blood Disorders: NONE Cancer(s): NONE WHIP OPERATOR/Reproductive: NONE Surgical History Surgical History: non-contributory Review of Systems Review of Systems Constitutional: Reports: see HPI, unexplained weight loss. Respiratory: Reports: short of breath. Neurological/Psychological: Reports: see HPI (headache). Exam & Diagnostic Data Last 24 Hrs of Vital Signs/I&O Vital Signs Date Time Temp Pulse Resp B/P B/P Pulse O2 O2 Flow FiO2 Mean Ox Delivery Rate 10/26 0350 96.0 108 18 128/101 98 BIPAP 25% 10/26 0349 107 98 10/26 0221 111 10/26 0203 122 20 166/117 95 Room Air 10/26 0020 112 96 10/26 0000 96.6 20 96 BIPAP 30% 10/25 2331 115 20 135/99 98 BIPAP 30% 10/25 2244 107 99 10/25 2210 97.0 107 20 148/99 99 Nasal 3.0L Cannula 10/25 1944 96.6 100 16 125/84 96 Nasal 2.0L Cannula 10/25 1936 94 Nasal 2.0L Cannula 10/25 1800 98.3 120 24 135/98 98 Nasal 3.0L Cannula 10/25 1642 99 Nasal 2.0L Cannula 10/25 1537 98.6 121 24 167/111 98 Nasal 3.0L Cannula Intake & Output 10/26 0800 10/26 0000 10/25 1600 Intake Total 620 Output Total Balance 620 Intake, IV 500 Intake, Oral 120 Patient 128 lb Weight Weight Estimated Measurement Method Physical Exam General Appearance Alert, Cooperative, Moderate Distress, very anxious. stating he cant breathe. Cardiovascular tachycardia Lungs very minimal air movement of R lung. reduced air movement of L lung. L lung wheezing. Abdomen Normal Bowel Sounds, Soft, No Tenderness Extremities no LE edema Last 24 Hrs of Labs/Ortega: Laboratory Tests 10/26/17 0353: Methadone Screen Pending, Barbiturate Screen Pending, Ur Phencyclidine Scrn Pending, Amphetamines Screen Pending, U Benzodiazepines Scrn Pending, Urine Cocaine Screen Pending, Urine Cannabis Screen Pending, Urine Color Pending, Urine Clarity Pending, Urine pH Pending, Ur Specific [place] Pending, Urine Protein Pending, Urine Ketones Pending, Urine Nitrite Pending, Urine Bilirubin Pending, Urine Urobilinogen Pending, Ur Leukocyte Esterase Pending, Ur Microscopic Pending, Urine Hemoglobin Pending, Urine Glucose Pending 10/26/17 0025: pH 7.33 L, pCO2 63 *H, pO2 75 L, HCO3 33 H, ABG O2 Sat (Measured) 92.0 L, P- 50 (Temp Corrected) N, Carboxyhemoglobin 2.1, O2 Concentration % 25%, Temperature 97.0, Respiration Rate 26, O2 Delivery Method BIPAP, Vent Mode ST, Expiratory Pressure 6, Inspiratory Pressure 18, Phlebotomy Draw Site RIGHT RADIAL 10/25/17 2332: Troponin I < 0.01 10/25/17 2150: pH 7.32 L, pCO2 73 *H, pO2 102 H, HCO3 36 H, ABG O2 Sat (Measured) 97.0, Carboxyhemoglobin 2.4, O2 Concentration % 3L, O2 Delivery Method NC, Phlebotomy Draw Site LEFT RADIAL 10/25/17 1705: Anion Gap 9, Estimated GFR > 60, BUN/Creatinine Ratio 32.0 H, Glucose 81, Calcium 9.5, Total Bilirubin 1.0, AST 22, ALT 29, Alkaline Phosphatase 60, Troponin I < 0.01, Cbx-B-Qiftguwxied Pept 41.4, Total Protein 6.7, Albumin 4.0, Globulin 2.7, Albumin/Globulin Ratio 1.5, CBC w Diff NO MAN DIFF REQ, RBC 5.53, MCV 84.2, MCH 26.5 L, MCHC 31.5 L, RDW 15.3 H, MPV 7.1 L, Gran % 68.3, Lymphocytes % 21.5, Monocytes % 7.7, Eosinophils % 2.1, Basophils % 0.4, Absolute Granulocytes 7.9 H, Absolute Lymphocytes 2.5, Absolute Monocytes 0.9 H, Absolute Eosinophils 0.2, Absolute Basophils 0 Microbiology 10/25 1810 NASOPHARYN: Influenza Virus A & B Rapid Smear - COMP 10/25 1751 BLOOD: Blood Culture - RECD 10/25 1705 BLOOD: Blood Culture - RECD Assessment/Plan Assessment: A: 42-year-old male pmhx: childhood asthma, recently diagnosed COPD on 2L nighttime oxygen, and recently quit smoking 2 months ago presenting for shortness of breath most likely 2/2 to COPD. P: #copd CTA: No CT evidence for pulmonary embolism. No acute airspace disease. 8mm area of enhancement within the right lobe of the liver. ABG: pH 7.32, PCO2 73, PO2 102, bicarbonate 36, O2 sat 97 on 3 L trop <.01 x2 FLU NEGATIVE Pt originally admitted to [facility] but ABG revealed CO2 retention. Pt started on Bipap for the first time and will be monitored in ICU. -solumdrol q6 -trc nebs -pulm consult #L chest pain - r/o ACS trop <.01x2 -f/u trop ekg/trop x3 to r/o ACS #EKG changes - peaked p waves, lateral q waves -r/o acs as above #leukocytosis - probably steroids WBC 11.5 Finished steroid taper 2 days ago Pt afebrile -cont to monitor #anxiety/psych -cont xanax -psych consult #hx of opdiate dependence on methadone -methadone dose confirm during last admission -cont methadone @ 7am -utox #liver lesion - known by pt -outpatient f/u #FULL CODE #DVT prophylaxis -lovenox As Ranked By This Provider Problem List: 1. COPD (chronic obstructive pulmonary disease) 2. Chest pain 3. Anxiety 4. Acute electrocardiogram changes Core Measures/Misc (05/30) Acute Coronary Syndrome ACS Diagnosis: No Congestive Heart Failure Congestive Heart Failure Diagnosis No Cerebrovascular Accident CVA/TIA Diagnosis: No VTE (View Protocol) VTE Risk Factors Acute Medical Illness No Mechanical VTE Prophylaxis d/t Other No VTE Pharm Prophylaxis d/t NA PharmProphylax ordered Sepsis (View protocol) Sepsis Present: No Allen KAMINSKI, [facility] 10/25/17 2311: Attending MD Review Statement Attending Statement Attending MD Statement: examined this patient, discuss w/resident/PA/WRAPPING MACHINE OPERATOR, agreed w/resident/PA/WRAPPING MACHINE OPERATOR, discussed with family, reviewed images, amended to note Attending Assessment/Plan: 42 yo M with h/o childhood asthma, COPD on 2L O2, substance abuse, severe anxiety on benzos, chronic opiate dependence on methadone ([facility]), quit smoking recently, recently admitted for COPD exacerbation (10/13 10/15) returns today stating 'I can't breathe'. Progressive dyspnea, dry cough and fever of 101 at home. Patient finished his prednisone taper and reports progressively worsening dyspnea wherein he increased his O2 from 2 to 3 L. He feels the oxygen aggravates his migraine headache and does not let him breathe well. He saw his Pulmonary Dr. Srinivasa Parr at [place] last week. He reports having lung nodules but CT images here have not confirmed this. He also c/o left sided chest discomfort/ pleuritic pain worse with breathing and cough. Patient has a h/o 62 pound weight loss in 1 month. Patient is on xanax for anxiety, which was being prescribed by Steve Justice (Psych) but she dismissed him from her practice as he was noncompliant with office visits. Patient's PCP does not prescribe benzos and patient has not yet been able to find a provider who could prescribe him benzos. Vitals: afebrile, tachycardic 100-120's, BP 135/99, sats 98% on 3L. When ambulated in ER, his sats dropped to 93% and patient was notably dyspneic and tachycardic. At the time of my evaluation, patient had pursed lip breathing, was speaking in short sentences and using accessory muscles. Cachectic appearing male in moderate respiratory distress, Neck supple, PERRL, Chest markedly reduced air entry with prolonged expiratory wheeze++, Heart S1S2 regular, tachycardic, Abd soft, NT, LE: no edema. Labs: WBC 11.5, H/H 14.7/46.5, Plt 300, bicarb 39, LFTs normal, troponin neg. AB.32/73/102/36 on 3L --> placed on Bipap. Flu swab negative. CXR: no conolidations, blunting of both lateral costophrenic angles pleural thickening. CTA chest: no PE, no acute airspace disease. Right hepatic lobe shows 8 mm area of enhancement. Stable bilateral renal cysts. EKG: sinus tachycardia, atrial abnormality with large 'p' waves, Qtc 441. Assessment and plan: 1. Acute on chronic hypoxic and hypercarbic respiratory failure 2. Acute COPD exacerbation 3. Severe anxiety 4. Chronic opiate dependence on methadone 5. CT evidence of hepatic enhancement needs further evaluation with MRI - Admit to ICU - Vitals Q 1 hour - Obtain sputum culture (if any) - TRC around the clock scheduled Q4 and as needed - Check urine legionella and strep Ag - Check urinalysis and urine drugs of abuse - IV solumedrol 40 Q6 - No need for antibiotics, patient recently completed course of azithro - If febrile, will consider coverage for possible CAP (although CT does not suggest consolidation) - Place on Bipap, repeat ABG in 1 hour - CRCU consult/ Pulm consult - Add mucinex - Serial EKG and troponin, obtain Echo - Resume methadone 100 mg and xanax 2 mg BID - Psych consult to help with anxiety DVT ppx Lovenox. Full code. Overnight, patient repeatedly removed his Bipap and had to be counseled multiple times. He also kept asking for xanax which we have given in short periods. at bedside is very restless, and stated to me that she does not know why she brought him here. She said, "can we rest without any disturbance." TTS > 60 mins Neda KAMINSKI,[facility] 10/26/17 0328: Resident Review Statement Resident Statement: examined this patient, discussed with grinder set up operator internal, agreed with grinder set up operator internal, discussed with family, discussed with nursing Other Findings: Mr. Alexandra is 42 year old male with past medical history significant for COPD, asthma, substance abuse on methadone, anxiety, PTSS, recently discharged 10/15/17 after he was treated for COPD exacerbation, patient was discharged on azithromycin and prednisone taper. He reported that once he finished the prednisone taper he started to have shortness of breath back. He was discharged on oxygen 2 L however reported having headaches because of the oxygen, he stopped using it. Denied any cough, fever, chills. He reported left chest pain 2 days ago, mostly when he gets anxious. Patient follow-up with his websphere commerce consultant in [place], no new recommendation. Problem list #Acute hypoxic and hypercapnic respiratory failure #COPD exacerbation #History of substance abuse on methadone Plan Admit to ICU TRC and nebs Solu-Medrol 40 mg Q6 Hold off azithromycin Pulmonary consultation Echocardiogram for peaked P waves Urinary analysis Urine toxicology Psych consultation Continue home dose xanax, methadone 100 mg daily was confirmed during last admission from [facility] Troponin and EKG 3 Start BiPAP and obtain ABG in one hour Code full DVT prophylaxis Lovenox and Alps Diet regular
--- NOTE | 2017-10-25 22:08 | Admission Certification ---
Admission Certification Certification Statement - As attending physician, I certify that at the time of - admission, based on clinical presentation, severity of - symptoms, need for further diagnostic testing and - therapeutic interventions, and risk of adverse outcomes - without in-hospital treatment, in my clinical assessment, - this patient requires an acute hospital stay for a minimum - of two nights or longer. I have also considered psychsocial - factors such as support system, advanced age, financial - issues, cognitive issues, and failed out-patient treatments, - past re-admission history, safety of patient, and lack of - compliance as applicable. Specific rationale supporting this admission is: Acute on chronic hypoxic and hypercarbic respiratory failure, COPD exacerbation, anxiety.
[2017-10-26 06:22] LABS: ABSOLUTE BASOPHIL COUNT 0 /CUMM (0.0-0.2); ABSOLUTE EOSINOPHIL COUNT 0 /CUMM (0.0-0.7); ABSOLUTE GRANULOCYTE CT 4.3 /CUMM (1.4-6.5); ABSOLUTE LYMPH COUNT 0.6 /CUMM (1.2-3.4); ABSOLUTE MONOCYTE COUNT 0.1 /CUMM (0.10-0.60); BASOPHIL % 0 % (0.0-2.0); EOSINOPHIL % 0.1 % (0-5); HEMATOCRIT 49.8 % (42-52); MEAN CORPUSCULAR HGB 26.5 PG (27.0-31.0); MEAN CORPUSCULAR HGB CONC 31.8 G/DL (33.0-37.0); MEAN CORPUSCULAR VOLUME 83.4 FL (80.0-94.0); MEAN PLATELET VOLUME 6.9 FL (7.4-10.4); PLATELET COUNT 292 /CUMM (130-400); RBC DISTRIBUTION WIDTH 15.6 % (11.5-14.5); RED BLOOD CELL CT 5.97 /CUMM (4.70-6.10)
[2017-10-26 06:46] LABS: WHITE BLOOD CELL COUNT 5.1 /CUMM (4.8-10.8)
[2017-10-26 06:47] LABS: GRANULOCYTE % 85.6 % (42.2-75.2)
--- NOTE | 2017-10-26 08:21 | Cons- CRCU ---
Gabrielaeligioann-marieLavernkristin 10/26/17 0820: General Information and HPI Consulting Request Date of Consult: 10/26/17 Requested By: Dr. Villa Reason for Consult: Acute on chronic hypoxic hypercarbic respiratory failure. Source of Information: patient Exam Limitations: no limitations History of Present Illness: Mr Alexandra is a 42 yo gentleman with PMHx of severe persistant asthma, COPD on 2L O2, substance abuse, anxiety disorder, chronic opiate dependence on methadone ( [facility]), smoker ( recently quit smoking ? ), returned to the hospital w/ a chief concern of inability to breathe. Reported worsening dyspnea when he started using increasing oxygen 2L-->3L when he completed his prednisone taper; non productive cough, and fever ( 101 deg ). Also reported, left sided chest discomfort worse with breathing and cough. Reported significant weight loss in the last one month, but could nt clearly quatnify. FamHx of emphysema in the mother, and polycystic kidney disease. At the time of presentation, vitals temperature 98.8, heart rate 100s, blood pressure 135/99, pulse ox 98% on 3 L. He was found to have been using accessory muscles, and had prolonged expiratory phase. Pertinent lab findings: WBC 11.5(10/25)-->5.1(10/26) Hemoglobin 14.7, platelets 300 Na 137, K 4.2 BUN 18, Cr 0.5 Bicarbonate 39-->37(10/26) ABG 7.32, PCO2 73, oxygen 102, bicarbonate 36 on 3 L Trop 0.01, 0.01,0.01 Utox positive for methadone, benzodiazepines( prescribed ) Positive for Hepatitis C antibody. He was admitted to ICU since he was started for the first time on BiPAP, which is an indication for ICU admission. Allergies/Medications Allergies: Coded Allergies: gabapentin (From NEURONTIN) (Severe, HIVES 10/12/17) naproxen (Severe, HIVES 10/12/17) tramadol (From ULTRAM) (Severe, HIVES 10/12/17) Home Med List: Albuterol Sulfate (Proair Hfa) 90 MCG HFA.AER.AD 2 PUF INH Q4H PRN WHEEZING ( Reported) Alprazolam 2 MG TABLET 1 TAB PO BID ANXIETY (Reported) Alprazolam (Xanax XR) 2 MG TAB.ER.24H 1 TAB PO BID ANXIETY Azithromycin 500 MG TABLET 1 TAB PO DAILY COPD Ipratropium/Albuterol Sulfate (Iprat-Albut 0.5-3(2.5) MG/3 Ml) 0.5 MG-3 MG (2.5 MG BASE)/3 ML AMPUL.NEB 3 ML INH Q6H PRN WHEEZING (Reported) Methadone HCl 10 MG/ML ORAL.CONC 100 MG PO DAILY MENTAL HEALTH (Reported) Prednisone 10 MG TABLET 1 TAB PO SEE ADMIN CRITERIA COPD TAKE 4 TABS X 3 DAYS 3 TABS X 3 DAYS 2 TABS X 3 DAYS 1 TAB X 3 DAYS AND THEN STOP ..... Current Medications: Current Medications Sig/Tab Start time Last Medication Dose Route Stop Time Status Admin Acetaminophen 650 MG Q6P PRN 10/25 2200 AC PO Albuterol Sulfate 3 ML TID 10/26 1600 AC 10/26 INH 1313 Albuterol Sulfate 3 ML Q4P PRN 10/26 0615 DC INH Albuterol Sulfate 3 ML DAILY NEEDED PRN 10/26 0615 AC INH Albuterol Sulfate 2 PUF Q4P PRN 10/25 2215 AC INH Alprazolam 1 MG BID 10/26 1000 DC PO 11/02 0959 Alprazolam 2 MG BID 10/26 1000 AC 10/26 PO 11/02 0959 1022 Alprazolam 0 .STK-MED ONE 10/26 0237 DC PO Alprazolam 1 MG ONCE ONE 10/26 0230 DC 10/26 PO 10/26 0231 0235 Alprazolam 0 .STK-MED ONE 10/25 2205 DC PO Alprazolam 1 MG ONCE ONE 10/25 2200 DC 10/25 PO 10/25 2201 2207 Amlodipine Besylate 5 MG DAILY 10/26 1015 AC 10/26 PO 1111 Azithromycin 250 MG DAILY 10/27 1000 CAN Dextrose/Water 250 ML IV Azithromycin 500 MG 1900 10/26 1900 AC 10/26 Dextrose/Water 250 ML IV 1836 Azithromycin 500 MG ONCE ONE 10/25 1900 DC 10/25 Dextrose/Water 250 ML IV 10/25 1959 1934 Enoxaparin Sodium 40 MG DAILY 10/26 1000 AC 10/26 SC 1111 Guaifenesin 600 MG Q12 10/26 1000 AC 10/26 PO 1111 Ipratropium [place] 2.5 ML TID 10/26 1600 AC 10/26 INH 1313 Ipratropium [place] 2.5 ML ONCE ONE 10/25 2215 DC 10/25 INH 10/25 2216 2244 Methadone HCl 100 MG 0700 10/27 0700 AC PO Methadone HCl 0 .STK-MED ONE 10/26 0701 DC PO Methadone HCl 100 MG ONCE ONE 10/26 0700 DC 10/26 PO 10/26 0701 0701 Methylprednisolone 60 MG DAILY 10/27 1000 AC IV Methylprednisolone 40 MG ONCE ONE 10/26 2200 AC IV 10/26 2201 Methylprednisolone 40 MG Q6 10/25 2359 DC 10/26 IV 0621 Review of Systems Review of Systems Constitutional: Reports: see HPI. Past History Travel History Traveled to [place] past 21 day No Medical History Neurological: NONE EENT: NONE Cardiovascular: NONE Respiratory: asthma, COPD Gastrointestinal: NONE Hepatic: NONE Renal: NONE Musculoskeletal: NONE Psychiatric: methadone Endocrine: NONE Blood Disorders: NONE Cancer(s): NONE [employer]/Reproductive: NONE Surgical History Surgical History: non-contributory Exam & Diagnostic Data Last 24 Hrs of Vital Signs/I&O Vital Signs Date Time Temp Pulse Resp B/P B/P Pulse O2 O2 Flow FiO2 Mean Ox Delivery Rate 10/26 1600 95 Nasal 2.0L Cannula 10/26 1600 98.1 91 14 122/57 95 Nasal 2.0L Cannula 10/26 1316 96 Nasal 2.0L Cannula 10/26 1200 96 Nasal 1.0L Cannula 10/26 1111 93 151/114 10/26 1018 Nasal 1.0L Cannula 10/26 0830 97.6 110 28 144/88 95 Nasal 1.0L Cannula 10/26 0830 95 Nasal 1.0L Cannula 10/26 0729 114 24 148/110 99 BIPAP 25% 10/26 0613 119 98 10/26 0533 97.0 121 22 139/99 99 BIPAP 25% 10/26 0500 96.9 117 26 98 BIPAP 25% 10/26 0350 96.0 108 18 128/101 98 BIPAP 25% 10/26 0349 107 98 10/26 0221 111 10/26 0203 122 20 166/117 95 Room Air 10/26 0020 112 96 10/26 0000 96.6 20 96 BIPAP 30% 10/25 2331 115 20 135/99 98 BIPAP 30% 10/25 2244 107 99 10/25 2210 97.0 107 20 148/99 99 Nasal 3.0L Cannula 10/254 96.6 100 16 125/84 96 Nasal 2.0L Cannula 10/25 1936 94 Nasal 2.0L Cannula Intake & Output 10/26 1600 10/26 0800 10/26 0000 Intake Total 380 620 Output Total 400 325 Balance -20 -325 620 Intake, IV 0 500 Intake, Oral 380 120 Number 1 Bowel Movements Output, Urine 400 325 Patient 130 lb Weight Weight Reported by Patient Measurement Method Physical Exam General Appearance: cachetic, thin Head: atraumatic, normal appearance Eyes: Bilateral: normal appearance, PERRL, EOMI. Ears, Nose, Throat: normal pharynx, normal ENT inspection, hearing grossly normal Neck: normal inspection, supple Respiratory: chest non-tender, decreased breath sounds, accessory muscle use, rales, chest wall- barrel chest Cardiovascular: regular rate/rhythm Peripheral Pulses: 4+ radial (R), 4+ radial (L) Gastrointestinal: normal bowel sounds, soft Back: normal inspection Extremities: normal inspection, normal capillary refill, normal range of motion, no edema Neurologic/Psych: no motor/sensory deficits, awake, alert, oriented x 3, normal mood/affect Cranial Nerves: normal hearing, normal speech, PERRL Last 48 Hrs of Labs/Ortega: Laboratory Tests 10/27/17 0500: Anion Gap 7, Estimated GFR > 60, Glucose 113 H, Calcium 9.7, Phosphorus 4.2, Magnesium 1.9, Total Bilirubin 0.8, AST 17, ALT 29, Albumin 4.2, CBC w Diff Pending, WBC Pending, RBC Pending, Hgb Pending, Hct Pending, MCV Pending, MCH Pending, MCHC Pending, RDW Pending, Plt Count Pending, MPV Pending 10/26/17 0820: pH 7.35, pCO2 65 *H, pO2 76 L, HCO3 35 H, ABG O2 Sat (Measured) 95.0 L, P-50 (Temp Corrected) NO, Carboxyhemoglobin 1.6, O2 Concentration % 25%, Respiration Rate 26, O2 Delivery Method BIPAP, Vent Mode ST, Expiratory Pressure 6, Inspiratory Pressure 16, Phlebotomy Draw Site RIGHT RADIAL 10/26/17 0610: Anion Gap 12, Estimated GFR > 60, BUN/Creatinine Ratio 36.0 H, Troponin I < 0.01, CBC w Diff NO MAN DIFF REQ, RBC 5.97, MCV 83.4, MCH 26.5 L, MCHC 31.8 L, RDW 15.6 H, MPV 6.9 L, Gran % 85.6 H, Lymphocytes % 12.8 L, Monocytes % 1.5 L, Eosinophils % 0.1, Basophils % 0, Absolute Granulocytes 4.3, Absolute Lymphocytes 0.6 L, Absolute Monocytes 0.1, Absolute Eosinophils 0, Absolute Basophils 0, Hepatitis A IgM Ab NONREACTIVE, Hep Bs Antigen NONREACTIVE, Hep B Core IgM Ab Conf NONREACTIVE, Hepatitis C Antibody REACTIVE H, HIV 1&2 Ab Western Blot NONREACTIVE 10/26/17 0353: Urine Opiates Screen > 4000.00 H, Methadone Screen > 735 H, Barbiturate Screen < 60, Ur Phencyclidine Scrn < 6.00, Amphetamines Screen < 100, U Benzodiazepines Scrn > 800.0 H, Urine Cocaine Screen 181, Urine Cannabis Screen < 5.00, Urine Color YEL, Urine Clarity CLEAR, Urine pH 6.5, Ur Specific Rufe 1.015, Urine Protein NEG, Urine Ketones 40 H, Urine Nitrite NEG, Urine Bilirubin NEG, Urine Urobilinogen 0.2, Ur Leukocyte Esterase NEG, Ur Microscopic EXAM NOT REQUIRED, Urine Hemoglobin NEG, Urine Glucose NEG 10/26/17 0025: pH 7.33 L, pCO2 63 *H, pO2 75 L, HCO3 33 H, ABG O2 Sat (Measured) 92.0 L, P- 50 (Temp Corrected) N, Carboxyhemoglobin 2.1, O2 Concentration % 25%, Temperature 97.0, Respiration Rate 26, O2 Delivery Method BIPAP, Vent Mode ST, Expiratory Pressure 6, Inspiratory Pressure 18, Phlebotomy Draw Site RIGHT RADIAL 10/25/17 2332: Troponin I < 0.01 10/25/17 2150: pH 7.32 L, pCO2 73 *H, pO2 102 H, HCO3 36 H, ABG O2 Sat (Measured) 97.0, Carboxyhemoglobin 2.4, O2 Concentration % 3L, O2 Delivery Method NC, Phlebotomy Draw Site LEFT RADIAL 10/25/17 1705: Anion Gap 9, Estimated GFR > 60, BUN/Creatinine Ratio 32.0 H, Glucose 81, Calcium 9.5, Total Bilirubin 1.0, AST 22, ALT 29, Alkaline Phosphatase 60, Troponin I < 0.01, Iis-T-Xkrmijbjuqh Pept 41.4, Total Protein 6.7, Albumin 4.0, Globulin 2.7, Albumin/Globulin Ratio 1.5, CBC w Diff NO MAN DIFF REQ, RBC 5.53, MCV 84.2, MCH 26.5 L, MCHC 31.5 L, RDW 15.3 H, MPV 7.1 L, Gran % 68.3, Lymphocytes % 21.5, Monocytes % 7.7, Eosinophils % 2.1, Basophils % 0.4, Absolute Granulocytes 7.9 H, Absolute Lymphocytes 2.5, Absolute Monocytes 0.9 H, Absolute Eosinophils 0.2, Absolute Basophils 0 Microbiology 10/25 1809 NASOPHARYN: Influenza Virus A & B Rapid Smear - COMP Diagnostic Data EKG Results NSR Left posterior fascicular block No STTWI. CXR Results No consolidations. Blunting of both lateral costophrenic angles likely inbound call center representative of pleural thickening, though small pleural effusions cannot be excluded. Other Results CAT - CTA CHEST-PULMONARY EMBOLISM No CT evidence for pulmonary embolism. No acute airspace disease. 8mm area of enhancement within the right lobe of the liver. This is nonspecific, but could correspond to an hemangioma. Consider correlation with abdominal MRI for further tissue characterization. 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 Review of his old medical records, revealed decreased FEV1, high residual volume , and increased functional residual capacity; also was there decrease in DLCO. Considering his young age, severe COPD, and cocaine use, it seems likely that he might have had bronchioitis obliterans. History indicates that he has had some pulmonary nodules, on recet HRCT, which could indicate bronchiolitis obliterans, and would need HRCT w/ inspiration and expiration images. Plan: 1. Respiratoy- At this time, he should be on azithromycin for COPD which is shown to decrease the exacerbations. Continue treatment with steroids, and taper them to po meds. Continue short acting beta-ned and anti-cholinergic meds. Acute hypoxic hypercarbic respiratory failure. Would continue bipap as needed. Recheck ABG in the am. 2. Circulatory- likely essential hypertension. He should be started on anti- hypertensive, which amlodipine could be a starting choice. 3. Infectious- stable. 4. Metabolic- monitor electrolytes. Stable. 5. Alimentary- Diet regular diet. Stable. Incidental finding of enhancement in the liver area; AAT negative; would investigate if clinically indicated. For now monitor AST, ALT. Hepatits panel was positive for hepatitis C antibody, which could be due to previous infection. 6. Neurology- h/o PTSD, and substance abuse. Continue methadone. Confirmed the dose from [place]. Continue xanax at the current dose. Housekeeping- 1. DVT PPx- lovenox sc 2. Full code 3. vent settings- none. On BiPAP. 4. Pressors none. Problem List: 1. Anxiety 2. Anxiety Consult Acknowledgment - Thank you for your consult request. Woodrow KAMINSKI,[facility] 10/26/17 0953: Assessment/Plan Other Findings/Comments: Cachectic gentleman Pupils check extraocular movements intact Chest decreased breath sounds with prolonged expiration Abdomen soft bowel sounds were heard Trace edema Seen and examined independently This is an unfortunate gentleman with previous history of significant smoking, significant obstructive lung disease, chronic hypercarbic respiratory insufficiency, previous history of polysubstance abuse, now comes in with Acute on chronic hypercarbic respiratory failure related to overall worsening pulmonary status Obstructive restrictive lung disease clinically and radiologically, probably has bronchiolitis with obstructive bronchiolitis-like pattern his progressive respiratory insufficiency. 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 Once he is better he would require high-resolution chest CT to rule out obliterative bronchiolitis Patient is critically ill total time spent 40 minutes Consult Acknowledgment - Thank you for your consult request.
[2017-10-26 08:30] VITALS: BP 144/88
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
[2017-10-26 16:00] VITALS: BP 122/57
[2017-10-27] VITALS: BP 120/80
[2017-10-27 05:36] LABS: ABSOLUTE BASOPHIL COUNT 0 /CUMM (0.0-0.2); ABSOLUTE EOSINOPHIL COUNT 0 /CUMM (0.0-0.7); ABSOLUTE GRANULOCYTE CT 9.1 /CUMM (1.4-6.5); ABSOLUTE LYMPH COUNT 0.7 /CUMM (1.2-3.4); ABSOLUTE MONOCYTE COUNT 0.2 /CUMM (0.10-0.60); BASOPHIL % 0.1 % (0.0-2.0); EOSINOPHIL % 0.1 % (0-5); HEMATOCRIT 47.4 % (42-52); MEAN CORPUSCULAR VOLUME 82.5 FL (80.0-94.0); MEAN PLATELET VOLUME 7.4 FL (7.4-10.4); PLATELET COUNT 293 /CUMM (130-400); RBC DISTRIBUTION WIDTH 15.1 % (11.5-14.5); RED BLOOD CELL CT 5.75 /CUMM (4.70-6.10)
[2017-10-27 06:14] LABS: GRANULOCYTE % 90.2 % (42.2-75.2); MEAN CORPUSCULAR HGB 26.4 PG (27.0-31.0); WHITE BLOOD CELL COUNT 10.1 /CUMM (4.8-10.8)
--- NOTE | 2017-10-27 07:43 | PN- Resident CRCU ---
Subjective HPI/CRCU Issues: Seen and examined patient. Not in respiratory distress lying comfortably in bed. Denies shortness of breath states that he feels well and denies being in any pain. Which is in no multiple times when he will be cleared for discharge. Acute on chronic hypercarbic respiratory failure 24 Hour Events: Overnight events noted Afebrile overnight, heart rate 23445 Blood pressure systolic 454154 diastolic 5788 Saturating 92% on 2 L nasal cannula Objective Vital Signs & I&O Last 8 Hrs of Vitals and I&O: Intake & Output 10/27 1600 10/27 0800 10/27 0000 Intake Total 1150 120 730 Output Total 800 600 Balance 350 -480 730 Intake, IV 100 250 Intake, Oral 1050 120 480 Intake, Other 0 Number 0 Bowel Movements Output, Urine 800 600 Laboratory Tests 10/27 10/27 0630 0500 Blood Gas pH (7.35 - 7.45 PH) 7.44 pCO2 (35 - 45 TORR) 52 H pO2 (80 - 100 TORR) 77 L HCO3 (21 - 28 MEQ/L) 35 H ABG O2 Sat (Measured) (>96.0 %) 95.0 L P-50 (Temp Corrected) Y Carboxyhemoglobin (1.5 - 5.0 %) 1.1 L O2 Concentration % 2 LPM Temperature (97.0 - 100.0 FARH) 97.5 O2 Delivery Method N/C Chemistry Sodium (137 - 145 mmol/L) 136 L Potassium (3.5 - 5.1 mmol/L) 4.7 Chloride (98 - 107 mmol/L) 90 L Carbon Dioxide (22 - 30 mmol/L) 39 H Anion Gap (5 - 16) 7 BUN (9 - 20 mg/dL) 21 H Creatinine (0.7 - 1.2 mg/dL) 0.6 L Estimated GFR (>60 ml/min) > 60 Glucose (65 - 99 mg/dL) 113 H Calcium (8.4 - 10.2 mg/dL) 9.7 Phosphorus (2.5 - 4.5 mg/dL) 4.2 Magnesium (1.6 - 2.3 mg/dL) 1.9 Total Bilirubin (0.2 - 1.3 mg/dL) 0.8 AST (17 - 59 U/L) 17 ALT (21 - 72 U/L) 29 Albumin (3.5 - 5.0 g/dL) 4.2 Hematology CBC w Diff NO MAN DIFF REQ WBC (4.8 - 10.8 /CUMM) 10.1 RBC (4.70 - 6.10 /CUMM) 5.75 Hgb (14.0 - 18.0 G/DL) 15.2 Hct (42 - 52 %) 47.4 MCV (80.0 - 94.0 FL) 82.5 MCH (27.0 - 31.0 PG) 26.4 L MCHC (33.0 - 37.0 G/DL) 32.0 L RDW (11.5 - 14.5 %) 15.1 H Plt Count (130 - 400 /CUMM) 293 MPV (7.4 - 10.4 FL) 7.4 Gran % (42.2 - 75.2 %) 90.2 H Lymphocytes % (20.5 - 51.1 %) 7.3 L Monocytes % (1.7 - 9.3 %) 2.3 Eosinophils % (0 - 5 %) 0.1 Basophils % (0.0 - 2.0 %) 0.1 Absolute Granulocytes (1.4 - 6.5 /CUMM) 9.1 H Absolute Lymphocytes (1.2 - 3.4 /CUMM) 0.7 L Absolute Monocytes (0.10 - 0.60 /CUMM) 0.2 Absolute Eosinophils (0.0 - 0.7 /CUMM) 0 Absolute Basophils (0.0 - 0.2 /CUMM) 0 Miscellaneous Phlebotomy Draw Site RIGHT RADIAL Intake & Output 10/27 1600 Intake Total 1150 Output Total 800 Balance 350 Intake, IV 100 Intake, Oral 1050 Intake, Other 0 Number 0 Bowel Movements Output, Urine 800 Exam General Appearance: alert, awake, anxious, comfortable Respiratory: quiet respiration Cardiovascular: regular rate/rhythm Gastrointestinal: normal bowel sounds, soft Extremities: no edema Current Medications: Current Medications Sig/Tab Start time Last Medication Dose Route Stop Time Status Admin Acetaminophen 650 MG Q6P PRN 10/25 2200 AC PO Albuterol Sulfate 3 ML TID 10/26 1600 AC 10/27 INH 1409 Albuterol Sulfate 3 ML DAILY NEEDED PRN 10/26 0615 AC INH Albuterol Sulfate 2 PUF Q4P PRN 10/25 2215 AC INH Alprazolam 2 MG BID 10/26 1000 AC 10/27 PO 11/02 0959 0945 Amlodipine Besylate 5 MG DAILY 10/26 1015 AC 10/27 PO 0946 Azithromycin 500 MG 1900 10/26 1900 AC 10/27 Dextrose/Water 250 ML IV 1805 Enoxaparin Sodium 40 MG DAILY 10/26 1000 AC 10/27 SC 0946 Guaifenesin 600 MG Q12 10/26 1000 AC 10/27 PO 0946 Ipratropium [place] 2.5 ML TID 10/26 1600 AC 10/27 INH 1409 Methadone HCl 100 MG 0700 10/27 0700 AC 10/27 PO 0652 Methylprednisolone 60 MG DAILY 10/27 1000 AC 10/27 IV 0946 Methylprednisolone 40 MG ONCE ONE 10/26 2200 DC 10/26 IV 10/26 2201 2214 Impression/Plan Impression/Problem List Impression: 42 yo gentleman with PMHx of severe persistant asthma, COPD on 2L O2, substance abuse, anxiety disorder, chronic opiate dependence on methadone ([facility]) , smoker ( recently quit smoking), returned to the hospital w/ a chief concern of inability to breathe, likely secondary to acute exacerbation of COPD, and 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 Plan: 1. Respiratory on IV azithromycin for COPD which is shown to decrease the exacerbations. Continue treatment with steroids, and taper them to po meds. Continue short acting beta-ned and anti-cholinergic meds. Acute hypoxic hypercarbic respiratory failure. Would continue bipap as needed. Recheck ABG in the am. Review of his old medical records, revealed decreased FEV1, high residual volume , and increased functional residual capacity; also was there decrease in DLCO. In view of his young age and severe COPD, and cocaine use, there is concern bronchioitis obliterans. History indicates that he has had some pulmonary nodules, on recet HRCT, which could indicate bronchiolitis obliterans, and would need HRCT w/ inspiration and expiration images. Negative alpha-1 antitrypsin mutation, negative HIV, negative QuantiFERON, negative allergy panel CT chest 10/26/17 : consistent with advanced emphysematous lung disease. Nosignificant bronchiectasis or peribronchial inflammatory changes are seen. A few nonspecific and probably benign solid non-calcified nodules are seen bilaterally, measuring up to 3 mm in size. Bilateral cystic masses in the kidneys. Recommend short interval follow-up imaging in 6 months for reassessment. Ideally, this should be performed as a dedicated renal MRI scan with and without contrast. 2. Circulatory- Hypertension. Started on amlodipine. Echo 10/26/17 :Normal left ventricular ejection fraction visually estimated at 60%. Abnormal relaxation filling pattern of the left ventricle for age (stage 1 diastolic dysfunction). No evidence of pulmonary hypertension. 3. Infectious- stable. 4. Metabolic- monitor electrolytes. Stable. 5. Alimentary- Diet regular diet. Stable. Incidental finding of enhancement in the liver area; AAT negative; would investigate if clinically indicated. For now monitor AST, ALT. Hepatits panel was positive for hepatitis C antibody, which could be due to previous infection. 6. Neurology- h/o PTSD, and substance abuse. Continue methadone. Confirmed the dose from [facility]. Continue xanax at the current dose. Psych on board. Wish to be notified of pt's discharge so follow up could be scheduled. DVT PPx- lovenox sc Full code Problem List: 1. Anxiety 2. Chest pain Pain Ratin Tomorrow's Labs & Rationales: cbc/bep Plan DVT/Prophylaxis: pharmacological
[2017-10-27 08:00] VITALS: BP 128/88
--- NOTE | 2017-10-27 10:45 | PN- CRCU ---
Subjective HPI/Critical Care Issues: Doing well Stable Objective Current Medications: Current Medications Sig/Tab Start time Last Medication Dose Route Stop Time Status Admin Acetaminophen 650 MG Q6P PRN 10/25 2200 AC PO Albuterol Sulfate 3 ML TID 10/26 1600 AC 10/27 INH 0837 Albuterol Sulfate 3 ML DAILY NEEDED PRN 10/26 0615 AC INH Albuterol Sulfate 2 PUF Q4P PRN 10/25 2215 AC INH Alprazolam 2 MG BID 10/26 1000 AC 10/27 PO 11/02 0959 0945 Amlodipine Besylate 5 MG DAILY 10/26 1015 AC 10/27 PO 0946 Azithromycin 250 MG DAILY 10/27 1000 CAN Dextrose/Water 250 ML IV Azithromycin 500 MG 1900 10/26 1900 AC 10/26 Dextrose/Water 250 ML IV 1836 Enoxaparin Sodium 40 MG DAILY 10/26 1000 AC 10/27 SC 0946 Guaifenesin 600 MG Q12 10/26 1000 AC 10/27 PO 0946 Ipratropium [place] 2.5 ML TID 10/26 1600 AC 10/27 INH 0837 Methadone HCl 100 MG 0700 10/27 0700 AC 10/27 PO 0652 Methylprednisolone 60 MG DAILY 10/27 1000 AC 10/27 IV 0946 Methylprednisolone 40 MG ONCE ONE 10/26 2200 DC 10/26 IV 10/26 2201 2214 Vital Signs & I&O Last 24 Hrs of Vitals and I&O: Vital Signs Date Time Temp Pulse Resp B/P B/P Pulse O2 O2 Flow FiO2 Mean Ox Delivery Rate 10/27 0946 96 124/83 10/27 0839 94 Nasal 2.0L Cannula 10/27 0800 97.8 94 18 128/88 98 Nasal 2.0L Cannula 10/27 0800 94 Nasal 2.0L Cannula 10/27 0400 95 Nasal 2.0L Cannula 10/27 0000 97.1 108 18 120/80 96 Nasal 2.0L Cannula 10/27 0000 96 Nasal 2.0L Cannula 10/26 2053 96 Nasal 1.0L Cannula 10/26 2000 96 Nasal 2.0L Cannula 10/26 1600 95 Nasal 2.0L Cannula 10/26 1600 98.1 91 14 122/57 95 Nasal 2.0L Cannula 10/26 1316 96 Nasal 2.0L Cannula 10/26 1200 96 Nasal 1.0L Cannula 10/26 1111 93 151/114 Intake & Output 10/27 1600 10/27 0800 10/27 0000 Intake Total 120 730 Output Total 600 Balance -480 730 Intake, IV 250 Intake, Oral 120 480 Output, Urine 600 Impression/Plan Impression/Plan Impression/Plan: Cachectic gentleman Pupils check extraocular movements intact Chest decreased breath sounds with prolonged expiration Abdomen soft bowel sounds were heard Trace edema Seen and examined independently This is an unfortunate gentleman with previous history of significant smoking, significant obstructive lung disease, chronic hypercarbic respiratory insufficiency, previous history of polysubstance abuse, now comes in with Resolving Acute on chronic hypercarbic respiratory failure related to overall worsening pulmonary status Obstructive restrictive lung disease clinically and radiologically, probably has bronchiolitis with obstructive bronchiolitis-like pattern his progressive respiratory insufficiency. 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
--- NOTE | 2017-10-27 11:33 | CT SCAN REPORT ---
EXAMINATION: CT CHEST WITHOUT CONTRAST CLINICAL INFORMATION: Acute onset of shortness of breath. History of COPD. Low FEV1 and high RV. High-resolution CT. Presumptive diagnosis of obliterative bronchiolitis. COMPARISON: CT scan of the chest dated 10/25/2017 and 10/13/2017. TECHNIQUE: Multidetector volumetric CT imaging of the chest was obtained noncontrast. Sagittal and coronal reformations were obtained. DLP: 275.27 mGy-cm. FINDINGS: LUNGS: There is [id number] centrilobular and paraseptal emphysema seen involving all lobes of the lungs, though with a upper lobe predominance. Mild thickening of the central airway is noted. No significant bronchiectasis is seen. There are some scattered areas of pleural-based band-like opacities, most consistent with atelectasis or scarring, for example, medial right upper lobe (series 3, image 129). Smaller linear reticular opacities are also seen in the left lower lobe (series 3, image 127), right lower lobe (series 3, image 226), and in the medial right lower lobe (series 3, image 238), most consistent with areas of mild fibrosis or scarring. No evidence of interlobular septal thickening or honeycomb cyst formation is seen. There are a few tiny scattered solid non-calcified nodules seen, including a left major fissure-based approximately 3 mm nodule (series 3, image 176), likely a small fissural based lymph node. Other 2 to 3 mm solid non-calcified nodules are seen in the left lower lobe (series 3, image 212, 218, 225). A small calcified granuloma is seen in the left lower lobe (series 3, image 213). No effusion or pneumothorax. Central airways patent. LYMPHOVASCULAR STRUCTURES: Aortic and heart size normal. No pericardial effusion. No mediastinal, hilar or axillary adenopathy or free fluid collection. THYROID GLAND: Unremarkable to the extent included. UPPER ABDOMEN: There is an exophytic thin-walled 1.7 x 1.5 cm low-attenuation mass in the mid right kidney (series 2, image 282, likely a mildly hyperdense cyst with mean attenuation values ranging up to 19 Hounsfield units. There is also an exophytic complex cystic mass in the mid left kidney with eccentric irregular peripheral rim calcifications, suggestion of internal thin septations with punctate associated calcifications and values of 20.8 Hounsfield units, measuring approximately 3.4 x 4.2 cm in size. There may be an additional adjacent smaller 1.8 x 1.2 cm cystic mass versus a lobulated excrescence from the complex mass described above. These findings are unchanged dating back to the initial study from 10/13/2017. Included portions of the solid organs in the upper abdomen otherwise unremarkable. BONES: No suspicious focal findings. IMPRESSION: 1. Findings are consistent with advanced emphysematous lung disease. No significant bronchiectasis or peribronchial inflammatory changes are seen. 2. A few nonspecific and probably benign solid non-calcified nodules are seen bilaterally, measuring up to 3 mm in size. These can be reassessed in 12 months to establish stability of these nodules. 3. No adenopathy. 4. Bilateral cystic masses in the kidneys, including a Bosniak category 2F cyst in the left kidney. Recommend short interval follow-up imaging in 6 months for reassessment. Ideally, this should be performed as a dedicated renal MRI scan with and without contrast.
--- NOTE | 2017-10-27 11:35 | PN- Ophthalmology ---
Subjective Subjective: Pt says his eye is clearer Review of Systems: Unchanged Objective Vital Signs and I&Os Vital Signs Date Time Temp Pulse Resp B/P B/P Pulse O2 O2 Flow FiO2 Mean Ox Delivery Rate 10/27 0946 96 124/83 10/27 0839 94 Nasal 2.0L Cannula 10/27 0800 97.8 94 18 128/88 98 Nasal 2.0L Cannula 10/27 0800 94 Nasal 2.0L Cannula 10/27 0400 95 Nasal 2.0L Cannula 10/27 0000 97.1 108 18 120/80 96 Nasal 2.0L Cannula 10/27 0000 96 Nasal 2.0L Cannula 10/26 2053 96 Nasal 1.0L Cannula 10/26 2000 96 Nasal 2.0L Cannula 10/26 1600 95 Nasal 2.0L Cannula 10/26 1600 98.1 91 14 122/57 95 Nasal 2.0L Cannula 10/26 1316 96 Nasal 2.0L Cannula 10/26 1200 96 Nasal 1.0L Cannula Intake & Output 10/27 1600 10/27 0800 10/27 0000 10/26 1600 10/26 0800 10/26 0000 Intake Total 120 730 380 620 Output Total 600 400 325 Balance -480 730 -20 -325 620 Intake, IV 250 0 500 Intake, Oral 120 480 380 120 Number 1 Bowel Movements Output, Urine 600 400 325 Patient 130 lb Weight Weight Reported by Patient Measurement Method Physical Exam: External exam is remarkable for mild injection. Cornea is slighly more opacified but the infiltrate appears small. It now only stains in a small area inferiorly Assessment/Plan Assessment/Plan Corneal infection improving on q2h Oflox and Ksy2sbaxrt. No growth from culture at 24h. Will continue drops as is until 6 PM then cut both to q4h alternating. Discussed with resident and nurse. Will see pt on Wednesday
--- NOTE | 2017-10-27 11:51 | PN- Psychiatry ---
Assessment/Plan Impression: The patient is reporting he is more comfortable today, that his breathing has improved. He is feeling sad that he has the lungs of an 80 y.o., but agrees with the possibility that they cold remain 80 y.o. lungs for some time. He agrees that talk therapy would be helpful, as well as medication management. His methadone clinic, [facility] in [place], does not currently have psychiatry services. They would refer the patient to [facility], where the patient had been discharged in the fall for missing appointments, or to [facility]. [place], closer to [place], and states that he would prefer to come to [place] for outpatient psychiatry. We will visit the patient in the next day or two when his discharge date is clearer, and to assist with aftercare. Suggestion: 1. We recommend tapering the patient from alprazolam 2 mg PO 2X/day. We can delay this until we know the patient's psychiatric follow-up, as he is concerned about decreasing this without adding another treatment for anxiety. He is allergic to gabapentin, which cannot be used off-label for anxiety. If the patient has assured followup, we will recommend starting an SSRI, while decreasing the alprazolam. 2. Please advise us of the discharge date. We will continue to follow along with you. Subjective Subjective: The patient is lying calmly in his bed with [address] in place. He is cooperative, alert and oriented to person, place, day, date, month and year. He denies auditory or visual hallucinations, and presents no serge delusions. He denies hopelessness, helplessness, worthlessness, guilty feelings. He denies suicidal or homicidal ideatio. Review of Systems Neurological/Psychological: Reports: depressed. Objective Last 24 Hrs of Vital Signs/I&O Vital Signs Date Time Temp Pulse Resp B/P B/P Pulse O2 O2 Flow FiO2 Mean Ox Delivery Rate 10/27 0946 96 124/83 10/27 0839 94 Nasal 2.0L Cannula 10/27 0800 97.8 94 18 128/88 98 Nasal 2.0L Cannula 10/27 0800 94 Nasal 2.0L Cannula 10/27 0400 95 Nasal 2.0L Cannula 10/27 0000 97.1 108 18 120/80 96 Nasal 2.0L Cannula 10/27 0000 96 Nasal 2.0L Cannula 10/26 2053 96 Nasal 1.0L Cannula 10/26 1999 96 Nasal 2.0L Cannula 10/26 1600 95 Nasal 2.0L Cannula 10/26 1600 98.1 91 14 122/57 95 Nasal 2.0L Cannula 10/26 1316 96 Nasal 2.0L Cannula 10/26 1200 96 Nasal 1.0L Cannula Intake & Output 10/27 1600 10/27 0800 10/27 0000 Intake Total 120 730 Output Total 600 Balance -480 730 Intake, IV 250 Intake, Oral 120 480 Output, Urine 600 Physical Exam: Not performed. Physical Exam General Appearance: no apparent distress, alert, awake, comfortable Neurologic/Psychiatric: awake, alert, oriented x 3 Current Medications: Current Medications Sig/Tab Start time Last Medication Dose Route Stop Time Status Admin Acetaminophen 650 MG Q6P PRN 10/25 2200 AC PO Albuterol Sulfate 3 ML TID 10/26 1600 AC 10/27 INH 0837 Albuterol Sulfate 3 ML DAILY NEEDED PRN 10/26 0615 AC INH Albuterol Sulfate 2 PUF Q4P PRN 10/25 2215 AC INH Alprazolam 2 MG BID 10/26 1000 AC 10/27 PO 11/02 0959 0945 Amlodipine Besylate 5 MG DAILY 10/26 1015 AC 10/27 PO 0946 Azithromycin 250 MG DAILY 10/27 1000 CAN Dextrose/Water 250 ML IV Azithromycin 500 MG 1900 10/26 1900 AC 10/26 Dextrose/Water 250 ML IV 1836 Enoxaparin Sodium 40 MG DAILY 10/26 1000 AC 10/27 SC 0946 Guaifenesin 600 MG Q12 10/26 1000 AC 10/27 PO 0946 Ipratropium [place] 2.5 ML TID 10/26 1600 AC 10/27 INH 0837 Methadone HCl 100 MG 0700 10/27 0700 AC 10/27 PO 0652 Methylprednisolone 60 MG DAILY 10/27 1000 AC 10/27 IV 0946 Methylprednisolone 40 MG ONCE ONE 10/26 2200 DC 10/26 IV 10/26 2201 2214 Results Last 24 Hrs of Labs/Mics: Laboratory Tests 10/27 10/27 0630 0500 Blood Gas pH (7.35 - 7.45 PH) 7.44 pCO2 (35 - 45 TORR) 52 H pO2 (80 - 100 TORR) 77 L HCO3 (21 - 28 MEQ/L) 35 H ABG O2 Sat (Measured) (>96.0 %) 95.0 L P-50 (Temp Corrected) Y Carboxyhemoglobin (1.5 - 5.0 %) 1.1 L O2 Concentration % 2 LPM Temperature (97.0 - 100.0 FARH) 97.5 O2 Delivery Method N/C Chemistry Sodium (137 - 145 mmol/L) 136 L Potassium (3.5 - 5.1 mmol/L) 4.7 Chloride (98 - 107 mmol/L) 90 L Carbon Dioxide (22 - 30 mmol/L) 39 H Anion Gap (5 - 16) 7 BUN (9 - 20 mg/dL) 21 H Creatinine (0.7 - 1.2 mg/dL) 0.6 L Estimated GFR (>60 ml/min) > 60 Glucose (65 - 99 mg/dL) 113 H Calcium (8.4 - 10.2 mg/dL) 9.7 Phosphorus (2.5 - 4.5 mg/dL) 4.2 Magnesium (1.6 - 2.3 mg/dL) 1.9 Total Bilirubin (0.2 - 1.3 mg/dL) 0.8 AST (17 - 59 U/L) 17 ALT (21 - 72 U/L) 29 Albumin (3.5 - 5.0 g/dL) 4.2 Hematology CBC w Diff NO MAN DIFF REQ WBC (4.8 - 10.8 /CUMM) 10.1 RBC (4.70 - 6.10 /CUMM) 5.75 Hgb (14.0 - 18.0 G/DL) 15.2 Hct (42 - 52 %) 47.4 MCV (80.0 - 94.0 FL) 82.5 MCH (27.0 - 31.0 PG) 26.4 L MCHC (33.0 - 37.0 G/DL) 32.0 L RDW (11.5 - 14.5 %) 15.1 H Plt Count (130 - 400 /CUMM) 293 MPV (7.4 - 10.4 FL) 7.4 Gran % (42.2 - 75.2 %) 90.2 H Lymphocytes % (20.5 - 51.1 %) 7.3 L Monocytes % (1.7 - 9.3 %) 2.3 Eosinophils % (0 - 5 %) 0.1 Basophils % (0.0 - 2.0 %) 0.1 Absolute Granulocytes (1.4 - 6.5 /CUMM) 9.1 H Absolute Lymphocytes (1.2 - 3.4 /CUMM) 0.7 L Absolute Monocytes (0.10 - 0.60 /CUMM) 0.2 Absolute Eosinophils (0.0 - 0.7 /CUMM) 0 Absolute Basophils (0.0 - 0.2 /CUMM) 0 Miscellaneous Phlebotomy Draw Site RIGHT RADIAL Recent Imaging Studies: Chest CT 10/26/17: IMPRESSION: 1. Findings are consistent with advanced emphysematous lung disease. No significant bronchiectasis or peribronchial inflammatory changes are seen. 2. A few nonspecific and probably benign solid non-calcified nodules are seen bilaterally, measuring up to 3 mm in size. These can be reassessed in 12 months to establish stability of these nodules. 3. No adenopathy. 4. Bilateral cystic masses in the kidneys, including a Bosniak category 2F cyst in the left kidney. Recommend short interval follow-up imaging in 6 months for reassessment. Ideally, this should be performed as a dedicated renal MRI scan with and without contrast.
--- NOTE | 2017-10-27 15:11 | ECHOCARDIOGRAM REPORT ---
JAXON PULIDO Age: 42 : 1975 Gender: M Exam Date: 10/26/2017 19:56 Exam Location: [facility] Ht (in): 70 Wt (lb): 128 BSA: 1.68 BP: 148 / 110 Ordering Physician: Karin Red MD Referring Physician: Karin Red MD Technologist: Maryann Camargo YONY Room Number: 111 Indications: Rhythm: Sinus Technical Quality: Poor FINDINGS Left Ventricle Small left ventricular cavity. Normal left ventricular wall thickness. No obvious regional wall motion abnormalities. Normal left ventricular ejection fraction visually estimated at 60%. Abnormal relaxation filling pattern of the left ventricle for age (stage 1 diastolic dysfunction). Right Ventricle Normal right ventricular size and function. Right Atrium Normal right atrial size. Left Atrium Normal left atrial size. Mitral Valve Mild mitral annular calcification. Mitral valve thickened. No mitral regurgitation. Aortic Valve Aortic valve not well visualized. Mild aortic sclerosis. No aortic valve stenosis or regurgitation. Tricuspid Valve Tricuspid valve not well visualized, grossly normal. Mild tricuspid regurgitation. No evidence of pulmonary hypertension. Right ventricular systolic pressure estimated to be within the normal range at 7 mmHg. Pulmonic Valve Pulmonic valve not well visualized. No pulmonic regurgitation. Pericardium No pericardial effusion. Great Vessels Normal size aortic root. Dilated inferior vena cava. CONCLUSIONS Small left ventricular cavity. Normal left ventricular wall thickness. No obvious regional wall motion abnormalities. Normal left ventricular ejection fraction visually estimated at 60%. Abnormal relaxation filling pattern of the left ventricle for age (stage 1 diastolic dysfunction). Normal right ventricular size and function. Normal atrial size. Mild tricuspid regurgitation. No evidence of pulmonary hypertension. Dilated inferior vena cava. Ananda Angelo M.D. (Electronically Signed) Final Date: 27 October 2017 15:10 MEASUREMENTS (Male / Female) Normal Values 2D ECHO LV Diastolic Diameter PLAX 3.4 cm 4.2 - 5.9 / 3.9 - 5.3 cm LV Systolic Diameter PLAX 2.3 cm 2.1 - 4.0 cm LV Fractional Shortening PLAX 32.4 % 25 - 46 % LV Ejection Fraction 2D Teich 61.8 % IVS Diastolic Thickness 1.0 cm LVPW Diastolic Thickness 1.0 cm LVPW Systolic Thickness 0.4 cm LV Relative Wall Thickness 0.6 RV Internal Dim ED PLAX 2.2 cm 1.9 - 3.8 cm LVOT Diameter 1.9 cm Aortic Root Diameter 2.8 cm LA Systolic Diameter LX 2.8 cm 3.0 - 4.0 / 2.7 - 3.8 cm LA Volume 10.0 cm 18 - 58 / 22 - 52 cm DOPPLER AV Peak Velocity 79.5 cm/s AV Peak Gradient 2.5 mmHg AV Mean Velocity 55.9 cm/s AV Mean Gradient 1.0 mmHg AV Velocity Time Integral 12.7 cm LVOT Peak Velocity 79.7 cm/s LVOT Peak Gradient 2.5 mmHg LVOT Mean Velocity 56.3 cm/s LVOT Mean Gradient 1.0 mmHg LVOT Velocity Time Integral 13.6 cm LVOT Stroke Volume 38.6 cm AV Area Cont Eq vti 3.0 cm AV Area Cont Eq pk 2.8 cm MV Peak Velocity 70.2 cm/s MV Peak Gradient 2.0 mmHg MV Mean Velocity 45.3 cm/s MV Mean Gradient 1.0 mmHg Mitral E Point Velocity 43.4 cm/s Mitral A Point Velocity 64.2 cm/s Mitral E to A Ratio 0.7 MV PHT Velocity 56.5 cm/s MV Deceleration Mckean 164.0 cm/s MV Pressure Half Time 103.4 ms MV Area PHT 2.1 cm MV Deceleration Time 211.0 ms TR Peak Velocity 73.3 cm/s TR Peak Gradient 2.1 mmHg Right Atrial Pressure 5.0 mmHg Pulmonary Artery Systolic Pressu 7.1 mmHg Right Ventricular Systolic Press 7.1 mmHg LV E' Lateral Velocity 8.2 cm/s Mitral E to LV E' Lateral Ratio 5.3 LV E' Septal Velocity 7.1 cm/s Mitral E to LV E' Septal Ratio 6.1
[2017-10-27 15:53] VITALS: BP 128/78
[2017-10-28 05:54] LABS: ABSOLUTE BASOPHIL COUNT 0 /CUMM (0.0-0.2); ABSOLUTE EOSINOPHIL COUNT 0.1 /CUMM (0.0-0.7); ABSOLUTE GRANULOCYTE CT 9.9 /CUMM (1.4-6.5); ABSOLUTE MONOCYTE COUNT 0.9 /CUMM (0.10-0.60); BASOPHIL % 0.3 % (0.0-2.0); EOSINOPHIL % 0.7 % (0-5); GRANULOCYTE % 71.3 % (42.2-75.2); MEAN CORPUSCULAR HGB 26.6 PG (27.0-31.0); MEAN CORPUSCULAR VOLUME 83.1 FL (80.0-94.0); MEAN PLATELET VOLUME 7.3 FL (7.4-10.4); PLATELET COUNT 267 /CUMM (130-400); RBC DISTRIBUTION WIDTH 15.2 % (11.5-14.5); WHITE BLOOD CELL COUNT 13.9 /CUMM (4.8-10.8)
--- NOTE | 2017-10-28 08:30 | PN- Housestaff ---
Subjective Follow-up For: Acute on chronic hypercarbic respiratory failure COPD Polysubstance abuse anxiety Subjective: Seen and examined patient this morning, at bedside offers no complaints. Denies shortness of breath, fever, chills, chest pain. Review of Systems Constitutional: Denies: chills, diaphoresis, fever, malaise, weakness, unexplained weight loss. Cardiovascular: Denies: no symptoms, see HPI, chest pain, edema, orthopena, palpitations, peripheral edema, syncope. Respiratory: Denies: cough, hemoptysis, orthopnea, short of breath, sputum production, stridor, wheezing. Objective Last 24 Hrs of Vital Signs/I&O Vital Signs Date Time Temp Pulse Resp B/P B/P Pulse O2 O2 Flow FiO2 Mean Ox Delivery Rate 10/28 1225 90 Nasal 1.0L Cannula 10/28 1223 98.0 101 18 122/68 90 Nasal 1.0L Cannula 10/28 1001 97.8 78 18 120/80 10/28 0821 Room Air 2.0L 10/28 0000 Nasal 2.0L Cannula 10/27 2039 Nasal 2.0L Cannula 10/27 2018 94 Nasal 2.0L Cannula 10/27 1554 93 Nasal 2.0L Cannula 10/27 1553 98.9 92 18 128/78 93 Nasal 2.0L Cannula Intake & Output 10/28 1600 10/28 0800 10/28 0000 Intake Total 240 120 850 Output Total 600 Balance 240 -480 850 Intake, IV 0 250 Intake, Oral 240 120 600 Number 0 Bowel Movements Output, Urine 600 Patient 130 lb Weight Physical Exam General Appearance: Alert, Oriented X3, Cooperative, No Acute Distress Cardiovascular: Normal S1, Normal S2 Lungs: b/l decreased BS Extremities: No Edema Assessment/Plan Assessment: 42 year gentleman with PMHx of severe persistant asthma, COPD on 2L O2, substance abuse, anxiety disorder, chronic opiate dependence on methadone ([facility]), smoker ( recently quit smoking), returned to the hospital w/ a chief concern of inability to breathe, likely secondary to acute exacerbation of COPD, admitted to ICU for possible intubation. Review of his old medical records, revealed decreased FEV1, high residual volume , and increased functional residual capacity; also was there decrease in DLCO. Negative alpha-1 antitrypsin mutation, negative HIV, negative QuantiFERON, negative allergy panel. CT chest 10/26/17 : consistent with advanced emphysematous lung disease. Nosignificant bronchiectasis or peribronchial inflammatory changes are seen. A few nonspecific and probably benign solid non-calcified nodules are seen bilaterally, measuring up to 3 mm in size. ICU course: His ICU course he remained hemodynamically stable and did not require any escalation of care with BiPAP or intubation. 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 He was negative for influenza A and B. Blood culture showed no growth Per pulmon he will need HRCT w/ inspiration and expiration images as oupatient workup 2) Hypertension: Started on amlodipine on this admission. Echo 10/26/17 :Normal left ventricular ejection fraction visually estimated at 60%. Abnormal relaxation filling pattern of the left ventricle for age (stage 1 diastolic dysfunction). No evidence of pulmonary hypertension. 3) Polysubstance abuse Continue methadone 4) Anxiety: psych on board recommending following taper; Alprazolam 2 mg PO every morning and Alprazolam 1.5 mg PO every evening as well as starting escitalopram 5 mg PO daily. Patient has an intake appt. at [facility] on , November 11, 2017, at 2:00 PM Other issues: -Hepatits panel was positive for hepatitis C antibody, which could be due to previous infection. -Bilateral cystic masses in the kidneys noted on CT scan. Recommending short interval follow-up imaging in 6 months for reassessment. Ideally, this should be performed as a dedicated renal MRI scan with and without contrast. DVT prophylaxis with lovenox full code Problem List: 1. COPD (chronic obstructive pulmonary disease) 2. Anxiety Pain Ratin Pain Location: na Pain Goal: Pain 4 or less Pain Plan: current regimen Tomorrow's Labs & Rationales: cbc
--- NOTE | 2017-10-28 09:35 | PN- Pulmonary ---
Subjective HPI/Critical Care Issues: Patient appears to be stable next and however he wishes to be discharged today as he has other concerns and issues which he needs to take care of at home Psychiatry evaluation done yesterday and I recommended outpatient follow-up Relatively stable on room air Objective Current Medications: Current Medications Sig/Tab Start time Last Medication Dose Route Stop Time Status Admin Acetaminophen 650 MG Q6P PRN 10/25 2200 AC PO Albuterol Sulfate 3 ML TID 10/26 1600 AC 10/27 INH 2015 Albuterol Sulfate 3 ML DAILY NEEDED PRN 10/26 0615 AC INH Albuterol Sulfate 2 PUF Q4P PRN 10/25 2215 AC INH Alprazolam 2 MG BID 10/26 1000 AC 10/27 PO 11/02 0959 2207 Amlodipine Besylate 5 MG DAILY 10/26 1015 AC 10/27 PO 0946 Azithromycin 500 MG 1900 10/26 1900 AC 10/27 Dextrose/Water 250 ML IV 1805 Enoxaparin Sodium 40 MG DAILY 10/26 1000 AC 10/27 SC 0946 Guaifenesin 600 MG Q12 10/26 1000 AC 10/27 PO 2208 Ipratropium [place] 2.5 ML TID 10/26 1600 AC 10/27 INH 2014 Methadone HCl 100 MG 0700 10/27 0700 AC 10/28 PO 0646 Methylprednisolone 60 MG DAILY 10/27 1000 AC 10/27 IV 0946 Vital Signs & I&O Last 24 Hrs of Vitals and I&O: Vital Signs Date Time Temp Pulse Resp B/P B/P Pulse O2 O2 Flow FiO2 Mean Ox Delivery Rate 10/28 0821 Room Air 2.0L 10/28 0000 Nasal 2.0L Cannula 10/27 2038 Nasal 2.0L Cannula 10/27 2018 94 Nasal 2.0L Cannula 10/27 1554 93 Nasal 2.0L Cannula 10/27 1553 98.9 92 18 128/78 93 Nasal 2.0L Cannula 10/27 0946 96 124/83 Intake & Output 10/28 1600 10/28 0800 10/28 0000 Intake Total 120 850 Output Total 600 Balance -480 850 Intake, IV 250 Intake, Oral 120 600 Output, Urine 600 Patient 130 lb Weight Laboratory Tests 10/28 10/27 0530 0630 Blood Gas pH (7.35 - 7.45 PH) 7.44 pCO2 (35 - 45 TORR) 52 H pO2 (80 - 100 TORR) 77 L HCO3 (21 - 28 MEQ/L) 35 H ABG O2 Sat (Measured) (>96.0 %) 95.0 L P-50 (Temp Corrected) Y Carboxyhemoglobin (1.5 - 5.0 %) 1.1 L O2 Concentration % 2 LPM Temperature (97.0 - 100.0 FARH) 97.5 O2 Delivery Method N/C Chemistry Sodium (137 - 145 mmol/L) 138 Potassium (3.5 - 5.1 mmol/L) 3.8 Chloride (98 - 107 mmol/L) 95 L Carbon Dioxide (22 - 30 mmol/L) 35 H Anion Gap (5 - 16) 7 BUN (9 - 20 mg/dL) 21 H Creatinine (0.7 - 1.2 mg/dL) 0.5 L Estimated GFR (>60 ml/min) > 60 Glucose (65 - 99 mg/dL) 72 Calcium (8.4 - 10.2 mg/dL) 8.8 Phosphorus (2.5 - 4.5 mg/dL) 4.1 Magnesium (1.6 - 2.3 mg/dL) 1.8 Total Bilirubin (0.2 - 1.3 mg/dL) 0.7 AST (17 - 59 U/L) 13 L ALT (21 - 72 U/L) 26 Albumin (3.5 - 5.0 g/dL) 3.4 L Hematology CBC w Diff NO MAN DIFF REQ WBC (4.8 - 10.8 /CUMM) 13.9 H RBC (4.70 - 6.10 /CUMM) 5.30 Hgb (14.0 - 18.0 G/DL) 14.1 Hct (42 - 52 %) 44.0 MCV (80.0 - 94.0 FL) 83.1 MCH (27.0 - 31.0 PG) 26.6 L MCHC (33.0 - 37.0 G/DL) 32.0 L RDW (11.5 - 14.5 %) 15.2 H Plt Count (130 - 400 /CUMM) 267 MPV (7.4 - 10.4 FL) 7.3 L Gran % (42.2 - 75.2 %) 71.3 Lymphocytes % (20.5 - 51.1 %) 21.3 Monocytes % (1.7 - 9.3 %) 6.4 Eosinophils % (0 - 5 %) 0.7 Basophils % (0.0 - 2.0 %) 0.3 Absolute Granulocytes (1.4 - 6.5 /CUMM) 9.9 H Absolute Lymphocytes (1.2 - 3.4 /CUMM) 3.0 Absolute Monocytes (0.10 - 0.60 /CUMM) 0.9 H Absolute Eosinophils (0.0 - 0.7 /CUMM) 0.1 Absolute Basophils (0.0 - 0.2 /CUMM) 0 Miscellaneous Phlebotomy Draw Site RIGHT RADIAL 10/27 0500 Chemistry Sodium (137 - 145 mmol/L) 136 L Potassium (3.5 - 5.1 mmol/L) 4.7 Chloride (98 - 107 mmol/L) 90 L Carbon Dioxide (22 - 30 mmol/L) 39 H Anion Gap (5 - 16) 7 BUN (9 - 20 mg/dL) 21 H Creatinine (0.7 - 1.2 mg/dL) 0.6 L Estimated GFR (>60 ml/min) > 60 Glucose (65 - 99 mg/dL) 113 H Calcium (8.4 - 10.2 mg/dL) 9.7 Phosphorus (2.5 - 4.5 mg/dL) 4.2 Magnesium (1.6 - 2.3 mg/dL) 1.9 Total Bilirubin (0.2 - 1.3 mg/dL) 0.8 AST (17 - 59 U/L) 17 ALT (21 - 72 U/L) 29 Albumin (3.5 - 5.0 g/dL) 4.2 Hematology CBC w Diff NO MAN DIFF REQ WBC (4.8 - 10.8 /CUMM) 10.1 RBC (4.70 - 6.10 /CUMM) 5.75 Hgb (14.0 - 18.0 G/DL) 15.2 Hct (42 - 52 %) 47.4 MCV (80.0 - 94.0 FL) 82.5 MCH (27.0 - 31.0 PG) 26.4 L MCHC (33.0 - 37.0 G/DL) 32.0 L RDW (11.5 - 14.5 %) 15.1 H Plt Count (130 - 400 /CUMM) 293 MPV (7.4 - 10.4 FL) 7.4 Gran % (42.2 - 75.2 %) 90.2 H Lymphocytes % (20.5 - 51.1 %) 7.3 L Monocytes % (1.7 - 9.3 %) 2.3 Eosinophils % (0 - 5 %) 0.1 Basophils % (0.0 - 2.0 %) 0.1 Absolute Granulocytes (1.4 - 6.5 /CUMM) 9.1 H Absolute Lymphocytes (1.2 - 3.4 /CUMM) 0.7 L Absolute Monocytes (0.10 - 0.60 /CUMM) 0.2 Absolute Eosinophils (0.0 - 0.7 /CUMM) 0 Absolute Basophils (0.0 - 0.2 /CUMM) 0 Microbiology Date/Time Procedure - Status Source Growth 10/26 0900 Surveillance Culture - COMP UPPER RESP 10/26 0856 Surveillance Culture - CAN GI Cancelled: PT REFUSED 10/26 0612 Respiratory Culture - CAN LOWER RESP Cancelled: SPECIMEN NOT RECEIVED IN LABORATORY 10/26 06 Gram Stain - CAN LOWER RESP Cancelled: SPECIMEN NOT RECEIVED IN LABORATORY 10/25 1810 Influenza Virus A & B Rapid Smear - COMP NASOPHARYN 10/25 1751 Blood Culture - RES BLOOD 10/25 1705 Blood Culture - RES BLOOD Impression/Plan Impression/Plan Impression/Plan: Cachectic gentleman Pupils check extraocular movements intact Chest decreased breath sounds with prolonged expiration Abdomen soft bowel sounds were heard Seen and examined independently This is an unfortunate gentleman with previous history of significant smoking, significant obstructive lung disease, chronic hypercarbic respiratory insufficiency, previous history of polysubstance abuse, now comes in with Resolved Acute on chronic hypercarbic respiratory failure related to overall worsening pulmonary status from emphysema and prob obliterative bronchioitis clinically Obstructive restrictive lung disease clinically and radiologically, probably has bronchiolitis with obstructive bronchiolitis-like pattern his progressive respiratory insufficiency. 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 (403, 303, 203, 10 5, 10 every other day 5 and DC) azithro 250 every other day continue other medications Increase activity DuoNeb 3 times a day [id number] Starts Spiriva 1 puff daily Flovent 110 MCG twice a day 1 puff twice a day
--- NOTE | 2017-10-28 12:04 | PN- Psychiatry ---
Assessment/Plan Impression: The patient states that his breathing has improved, and expects to discharge on 10/29/17, if he meets Dr. Troy's goal of 90% SpO2. The patient has an intake appt. at [facility] on November, at 2:00 PM, with Seema, at [address] [place] [address] , . He is to appear 15 minutes early and should bring his photo ID and insurance card. He understands that the goal will be to titrate a first-line medicaiton for anxiety to effect, while tapering benzodiazepines. His supportive mother and brother are present. The brother reports that he takes Lexapro and tolerates it well. He will continue to receive methadone at [facility], who no longer have psychiatry services. He reports that he expects to undergo a random taper off this medication. The patient is in agreement to starte escitalopram here in the hospital, and begin the taper of alprazolam today. He is not suicidal, homicidal, not psychotic, nor delirious. He is clear to discharge from a psychiatry viewpoint. Suggestion: 1. The patient agrees to begin the alprazolam taper today. this can continue until seen by his provider at [facility], which may be within a week after his appointment. Please provide enough medication to carry the patient through his first meeting with the new prescriber, and a referral to PCP within the first week, in the event he needs a refill. Our intention is to assume control of this medication at [facility]: a. Alprazolam 2 mg PO every morning b. Alprazolam 1.5 mg PO every evening 2. I will start escitalopram 5 mg PO daily. Please provide a sufficient quantity to last until his first meeting with his psychiatric prescriber, usually within a week after the 11/11/17 intake appointment. Hold for hyponatremia or arrhythmia/ QT prolongation on EKG. Thank you for this consult. Psychiatry is signing off. Subjective Subjective: A+O Denies AH, VH and presents no serge delusions Denies SI or HI Mood euthymic; affect full range Review of Systems Neurological/Psychological: Reports: anxiety. Objective Last 24 Hrs of Vital Signs/I&O Vital Signs Date Time Temp Pulse Resp B/P B/P Pulse O2 O2 Flow FiO2 Mean Ox Delivery Rate 10/28 1001 97.8 78 18 120/80 10/28 0821 Room Air 2.0L 10/28 0000 Nasal 2.0L Cannula 10/27 2038 Nasal 2.0L Cannula 10/27 2017 94 Nasal 2.0L Cannula 10/27 1554 93 Nasal 2.0L Cannula 10/27 1553 98.9 92 18 128/78 93 Nasal 2.0L Cannula Intake & Output 10/28 1600 10/28 0800 10/28 0000 Intake Total 120 850 Output Total 600 Balance -480 850 Intake, IV 250 Intake, Oral 120 600 Output, Urine 600 Patient 130 lb Weight Physical Exam: Not performed Physical Exam General Appearance: alert, awake, anxious, comfortable, thin Neurologic/Psychiatric: awake, alert, oriented x 3 Current Medications: Current Medications Sig/Tab Start time Last Medication Dose Route Stop Time Status Admin Acetaminophen 650 MG Q6P PRN 10/25 2200 AC PO Albuterol Sulfate 3 ML TID 10/26 1600 AC 10/27 INH 2014 Albuterol Sulfate 3 ML DAILY NEEDED PRN 10/26 0615 AC INH Albuterol Sulfate 2 PUF Q4P PRN 10/25 2215 AC INH Alprazolam 2 MG BID 10/26 1000 AC 10/28 PO 11/02 0959 1000 Amlodipine Besylate 5 MG DAILY 10/26 1015 AC 10/28 PO 1001 Azithromycin 500 MG 1900 10/26 1900 AC 10/27 Dextrose/Water 250 ML IV 1805 Enoxaparin Sodium 40 MG DAILY 10/26 1000 AC 10/28 SC 1008 Guaifenesin 600 MG Q12 10/26 1000 AC 10/28 PO 1001 Ipratropium [place] 2.5 ML TID 10/26 1600 AC 10/27 INH 2014 Methadone HCl 100 MG 0700 10/27 0700 AC 10/28 PO 0646 Methylprednisolone 60 MG DAILY 10/27 1000 AC 10/28 IV 1000 Results Last 24 Hrs of Labs/Mics: Laboratory Tests 10/28 0530 Chemistry Sodium (137 - 145 mmol/L) 138 Potassium (3.5 - 5.1 mmol/L) 3.8 Chloride (98 - 107 mmol/L) 95 L Carbon Dioxide (22 - 30 mmol/L) 35 H Anion Gap (5 - 16) 7 BUN (9 - 20 mg/dL) 21 H Creatinine (0.7 - 1.2 mg/dL) 0.5 L Estimated GFR (>60 ml/min) > 60 Glucose (65 - 99 mg/dL) 72 Calcium (8.4 - 10.2 mg/dL) 8.8 Phosphorus (2.5 - 4.5 mg/dL) 4.1 Magnesium (1.6 - 2.3 mg/dL) 1.8 Total Bilirubin (0.2 - 1.3 mg/dL) 0.7 AST (17 - 59 U/L) 13 L ALT (21 - 72 U/L) 26 Albumin (3.5 - 5.0 g/dL) 3.4 L Hematology CBC w Diff NO MAN DIFF REQ WBC (4.8 - 10.8 /CUMM) 13.9 H RBC (4.70 - 6.10 /CUMM) 5.30 Hgb (14.0 - 18.0 G/DL) 14.1 Hct (42 - 52 %) 44.0 MCV (80.0 - 94.0 FL) 83.1 MCH (27.0 - 31.0 PG) 26.6 L MCHC (33.0 - 37.0 G/DL) 32.0 L RDW (11.5 - 14.5 %) 15.2 H Plt Count (130 - 400 /CUMM) 267 MPV (7.4 - 10.4 FL) 7.3 L Gran % (42.2 - 75.2 %) 71.3 Lymphocytes % (20.5 - 51.1 %) 21.3 Monocytes % (1.7 - 9.3 %) 6.4 Eosinophils % (0 - 5 %) 0.7 Basophils % (0.0 - 2.0 %) 0.3 Absolute Granulocytes (1.4 - 6.5 /CUMM) 9.9 H Absolute Lymphocytes (1.2 - 3.4 /CUMM) 3.0 Absolute Monocytes (0.10 - 0.60 /CUMM) 0.9 H Absolute Eosinophils (0.0 - 0.7 /CUMM) 0.1 Absolute Basophils (0.0 - 0.2 /CUMM) 0
[2017-10-28 12:23] VITALS: BP 122/68
[2017-10-28] MEDS ORDERED: LEXAPRO5 M1 PO (14:30)
[2017-10-28] MEDS ORDERED: SPIRIVA18 MCG INH (14:30)
[2017-10-28] MEDS ORDERED: AMLODIPINE BESYL5 M1 PO (14:30)
--- NOTE | 2017-10-28 14:31 | Patient Discharge Instructions ---
Discharge Instructions General Discharge Information You were seen/treated for: Respiratory failure Special Instructions: please follow up with your PCP within one week of discharge. [facility] appointment has been made for you on , November 11, 2017, at 2:00 PM, with Seema at [address] [place] [address] , . Please bring photo ID and insurance card. Activity Full Activity/No Limits: Yes Acute Coronary Syndrome Inclusion Criteria At DC or during hospital stay patient has or had the following: ACS DIAGNOSIS No Discharge Core Measures Meds if any: Prescribed or Continued at Discharge Meds if any: NOT Prescribed or Continued at Discharge Congestive Heart Failure Inclusion Criteria At DC or during hospital stay patient has or had the following: CHF DIAGNOSIS No Discharge Core Measures Meds if any: Prescribed or Continued at Discharge Meds if any: NOT Prescribed or Continued at Discharge Cerebrovascular accident Inclusion Criteria At DC or during hospital stay patient has or had the following: CVA/TIA Diagnosis No Discharge Core Measures Meds if any: Prescribed or Continued at Discharge Meds if any: NOT Prescribed or Continued at Discharge Venous thromboembolism Inclusion Criteria VTE Diagnosis No VTE Type NONE VTE Confirmed by (Test) NONE Discharge Core Measures - Per Current guidelines, there needs to be overlap - treatment for the first 5 days of Warfarin therapy. - If discharged on Warfarin prior to 5 days of - overlap therapy, the patient will need to be - assessed for post discharge needs including - *Post discharge parental anticoagulation - *Warfarin and/or parental anticoagulation education - *Follow up date to check INR post discharge At least 5 days overlap therapy as Inpatient No Meds if any: Prescribed or Continued at Discharge Note: Overlap Therapy is Warfarin and Anticoagulant Meds if any: NOT Prescribed or Continued at Discharge
[2017-10-28] MEDS ORDERED: FLOVENT HFA12 G1 INH (14:51)
[2017-10-28 22:21] VITALS: BP 120/80
[2017-10-29 07:15] VITALS: BP 162/100
--- NOTE | 2017-10-29 09:02 | PN- Housestaff ---
HatfieldInga 10/29/17 0853: Subjective Follow-up For: COPD exacerbation Severe anxiety Chronic opiate dependence on methadone CT evidence of hepatic enhancement Subjective: No overnight event. Patient was eating breakfast when I entered. Breathing comfortably on 2L. Acknowledged that will switch to oral prednisone today, and pending discharge may be today, with long-term zithromax every other day. Offered no complaint. Review of Systems Constitutional: Reports: see HPI. Objective Last 24 Hrs of Vital Signs/I&O Vital Signs Date Time Temp Pulse Resp B/P B/P Pulse O2 O2 Flow FiO2 Mean Ox Delivery Rate 10/29 0715 97.9 125 20 162/100 92 10/29 0000 Nasal 2.0L Cannula 10/28 2221 97.9 90 20 120/80 92 Nasal 1.0L Cannula 10/28 1950 94 Nasal 1.0L Cannula 10/28 1600 Nasal 1.0L Cannula 10/28 1509 92 Nasal 1.0L Cannula 10/28 1225 90 Nasal 1.0L Cannula 10/28 1223 98.0 101 18 122/68 90 Nasal 1.0L Cannula 10/28 1001 97.8 78 18 120/80 Intake & Output 10/29 1600 10/29 0800 10/29 0000 Intake Total 480 Output Total 500 Balance -500 480 Intake, Oral 480 Output, Urine 500 Physical Exam General Appearance: Alert, Oriented X3, Cooperative, No Acute Distress Skin: tatoos Cardiovascular: Tachy Lungs: Normal Air Movement, Mild rhonchi, no wheezing auscultated. Abdomen: Normal Bowel Sounds, Soft, No Tenderness Neurological: Normal Speech Extremities: No Edema, Normal Pulses Current Medications: Current Medications Sig/Tab Start time Last Medication Dose Route Stop Time Status Admin Acetaminophen 650 MG .STK-MED ONE 10/28 1923 DC PO 10/28 1924 Acetaminophen 650 MG Q6P PRN 10/25 2200 AC 10/28 PO 192 Albuterol Sulfate 3 ML Q8 10/29 1400 AC INH Albuterol Sulfate 3 ML BID 10/28 2200 DC 10/28 INH 194 Albuterol Sulfate 3 ML TID 10/26 1600 DC 10/27 INH 2014 Albuterol Sulfate 3 ML DAILY NEEDED PRN 10/26 0615 DC INH Albuterol Sulfate 2 PUF Q4P PRN 10/25 2215 DC INH Alprazolam 2 MG DAILY 10/29 1000 AC PO 11/05 0959 Alprazolam 1.5 MG QPM 10/28 2200 AC 10/28 PO 11/04 2159 2103 Alprazolam 2 MG BID 10/26 1000 DC 10/28 PO 11/02 0959 1000 Amlodipine Besylate 5 MG DAILY 10/26 1015 AC 10/28 PO 1001 Azithromycin 250 MG Q48 10/29 1000 AC PO Azithromycin 500 MG 1900 10/26 1900 DC 10/27 Dextrose/Water 250 ML IV 1805 Enoxaparin Sodium 40 MG DAILY 10/26 1000 AC 10/28 SC 1008 Escitalopram Oxalate 5 MG DAILY 10/28 1205 AC 10/28 PO 1609 Fluticasone 2 PUF BID 10/28 2200 AC 10/28 Propionate INH 2104 Guaifenesin 600 MG Q12 10/26 1000 AC 10/28 PO 2104 Ipratropium [place] 2.5 ML Q8 10/29 0810 AC INH Ipratropium [place] 2.5 ML TID 10/26 1600 DC 10/27 INH 2015 Methadone HCl 100 MG 0700 10/27 0700 AC 10/29 PO 0630 Methylprednisolone 60 MG DAILY 10/27 1000 DC 10/28 IV 1000 Prednisone 50 MG DAILY 10/29 1000 AC PO Tiotropium [place] 1 PUF DAILY 10/29 1000 AC INH Assessment/Plan Assessment: Mr. 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 #COPD Exacerbation - Will switch from IV to PO prednisone 50mg qd and taper every 3 days. - Continue oral zithromax 250mg qod for long-term suppression. - Currently on 2L O2 which patient claimed to be his baseline. CT chest 10/26/17 : consistent with advanced emphysematous lung disease. Nosignificant bronchiectasis or peribronchial inflammatory changes are seen. A few nonspecific and probably benign solid non-calcified nodules are seen bilaterally, measuring up to 3 mm in size. Bilateral cystic masses in the kidneys. Recommend short interval follow-up imaging in 6 months for reassessment. Ideally, this should be performed as a dedicated renal MRI scan with and without contrast. #Hypertension Echo 10/26/17 :Normal left ventricular ejection fraction visually estimated at 60%. Abnormal relaxation filling pattern of the left ventricle for age (stage 1 diastolic dysfunction). No evidence of pulmonary hypertension. - Continue Amlodipine 5mg qd - Patient's BP this morning was 134/92 and HR 96 after being given Amlodipine 5mg. #Anxiety - Continue Xanax 1.5mg qd PO and will discharge on Xanax. Patient's anxiety may contribute to his HTN as well. Patient will be f/u by Jerry Romero in outpatient. #Polysubstance abuse - Continue Methadone 100mg qd (Confirmed the dose from [facility]) - outpatient f/u with Psych as above. #Incidental finding of enhancement in the liver area - Hepatits panel was positive for hepatitis C antibody, which could be due to previous infection - Will defer to outpatient f/u DVT PPx- lovenox sc + ALPS Regular diet Full code Problem List: 1. Anxiety 2. COPD (chronic obstructive pulmonary disease) Pain Ratin Pain Location: NA Pain Goal: Remain pain free Pain Plan: see AP Tomorrow's Labs & Rationales: NA Laurie Enrique 10/29/17 1239: Attending MD Review Statement Attending Statement Attending MD Statement: examined this patient, discuss w/resident/PA/SPECIAL LOAN OFFICER, agreed w/resident/PA/SPECIAL LOAN OFFICER, discussed with family, reviewed EMR data (avail), discussed with nursing, discussed with case mgmt, reviewed images, amended to note Attending Assessment/Plan: Patient seen/exmained bedside. No new complaints. transferred from ICU overnight. taper steroids, recheck BP and if higher add amlodipine. Needs outpatient f/u PCP at discharge. f/u ophathalmology for corneal ulcers. gi/dvt prophyalxis
[2017-10-29 11:30] VITALS: BP 134/92
--- NOTE | 2017-10-29 13:32 | PN- Pulmonary ---
Subjective HPI/Critical Care Issues: No overnight event. Review of Systems Constitutional: Reports: see HPI. Objective Current Medications: Current Medications Sig/Tab Start time Last Medication Dose Route Stop Time Status Admin Acetaminophen 650 MG .STK-MED ONE 10/28 1923 DC PO 10/28 192 Acetaminophen 650 MG Q6P PRN 10/25 2200 AC 10/28 PO 1926 Albuterol Sulfate 3 ML Q8 10/29 1400 AC 10/29 INH 1036 Albuterol Sulfate 3 ML BID 10/28 2200 DC 10/28 INH 1948 Albuterol Sulfate 3 ML TID 10/26 1600 DC 10/27 INH 2015 Albuterol Sulfate 3 ML DAILY NEEDED PRN 10/26 0615 DC INH Albuterol Sulfate 2 PUF Q4P PRN 10/25 2215 DC INH Alprazolam 2 MG DAILY 10/29 1000 AC 10/29 PO 11/05 0959 0856 Alprazolam 1.5 MG QPM 10/28 2200 AC 10/28 PO 11/04 2159 2103 Alprazolam 2 MG BID 10/26 1000 DC 10/28 PO 11/02 0959 1000 Amlodipine Besylate 5 MG DAILY 10/26 1015 AC 10/29 PO 0901 Azithromycin 250 MG Q48 10/29 1000 AC 10/29 PO 0902 Azithromycin 500 MG 1900 10/26 1900 DC 10/27 Dextrose/Water 250 ML IV 1805 Enoxaparin Sodium 40 MG DAILY 10/26 1000 AC 10/29 SC 0858 Escitalopram Oxalate 5 MG DAILY 10/28 1205 AC 10/29 PO 0858 Fluticasone 2 PUF BID 10/28 2200 AC 10/29 Propionate INH 0902 Guaifenesin 600 MG Q12 10/26 1000 AC 10/29 PO 0858 Ipratropium [place] 2.5 ML Q8 10/29 0810 AC INH Ipratropium [place] 2.5 ML TID 10/26 1600 DC 10/27 INH 2015 Methadone HCl 100 MG 0700 10/27 0700 AC 10/29 PO 0630 Methylprednisolone 60 MG DAILY 10/27 1000 DC 10/28 IV 1000 Prednisone 50 MG DAILY 10/29 1000 AC 10/29 PO 0857 Tiotropium [place] 1 PUF DAILY 10/29 1000 AC INH Vital Signs & I&O Last 24 Hrs of Vitals and I&O: Vital Signs Date Time Temp Pulse Resp B/P B/P Pulse O2 O2 Flow FiO2 Mean Ox Delivery Rate 10/29 1130 96 134/92 10/29 1038 91 Nasal 2.0L Cannula 10/29 0901 104 140/100 10/29 0800 95 Nasal 2.0L Cannula 10/29 0715 97.9 125 20 162/100 92 10/29 0000 Nasal 2.0L Cannula 10/28 2221 97.9 90 20 120/80 92 Nasal 1.0L Cannula 10/28 1950 94 Nasal 1.0L Cannula 10/28 1600 Nasal 1.0L Cannula 10/28 1509 92 Nasal 1.0L Cannula Intake & Output 10/29 1600 10/29 0800 10/29 0000 Intake Total 480 Output Total 500 Balance -500 480 Intake, Oral 480 Output, Urine 500 Impression/Plan Impression/Plan Impression/Plan: Cachectic gentleman Pupils check extraocular movements intact Chest decreased breath sounds with prolonged expiration Abdomen soft bowel sounds were heard This is an unfortunate gentleman with previous history of significant smoking, significant obstructive lung disease, chronic hypercarbic respiratory insufficiency, previous history of polysubstance abuse, now comes in with Resolved Acute on chronic hypercarbic respiratory failure related to overall worsening pulmonary status from emphysema and prob obliterative bronchioitis clinically Obstructive restrictive lung disease clinically and radiologically, probably has bronchiolitis with obstructive bronchiolitis-like pattern his progressive respiratory insufficiency. 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 (403, 303, 203, 105, 10 every other day 5 and DC) azithro 250 every other day continue other medications Increase activity DuoNeb 3 times a day [id number] Starts Spiriva 1 puff daily Flovent 110 MCG twice a day 1 puff twice a day Ok to dc and pt has oxygen and nebs at home
[2017-10-29] MEDS ORDERED: PREDNISONE10 M2 PO ×2 (13:40→14:33)
[2017-10-29] MEDS ORDERED: AZITHROMYCIN250 M1 PO ×2 (13:40→14:33)
[2017-10-29] MEDS ORDERED: ALPRAZOLAM0.5 M4 PO ×2 (13:40)
--- NOTE | 2017-10-29 13:54 | Discharge Summary ---
Visit Information Visit Dates Admission Date: 10/25/17 Discharge Date: 10/29/2017 Hospital Course Course Attending Physician: Allen KAMINSKI,[place] Primary Care Physician: Ermias KAMINSKI,[facility] Course: Mr. 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 #COPD Exacerbation Patient was started on IV solumedrol and later bridged to oral Prednisone with a slow taper. Patient received Azithromycin and would be continued on long-term zithromax 250mg every other day for his condition. Patient was titrated on oxygen to his baseline of 2L O2 prior discharge. #Hypertension Patient's last Echo 10/26/17 :Normal left ventricular ejection fraction visually estimated at 60%. Abnormal relaxation filling pattern of the left ventricle for age (stage 1 diastolic dysfunction). No evidence of pulmonary hypertension. Patient was then started on amlodipine 5mg daily and his BP was 134/92 and HR 96 prior discharge. Patient was advised to continue on this Amlodipine dose after discharge.. #Anxiety Over the hospital stay, patient was continued on Alprazolam 2 mg PO every morning and Alprazolam 1.5 mg PO every evening as well as starting escitalopram 5 mg PO daily. Patient's anxiety may contribute to his HTN as well. Patient will be f/u by Jerry Romero at Outpatient Psychiatry on November, at 2:00 PM #Polysubstance abuse Patient was continued on Methadone 100mg qd (Confirmed the dose from [facility]), and pending outpatient f/u with Psych as above. #Incidental finding of enhancement in the liver area Patient's Hepatits panel was positive for hepatitis C antibody, which could be due to previous infection. We would defer this finding to outpatient f/u DVT PPx- lovenox sc + ALPS Regular diet Full code Allergies: Coded Allergies: gabapentin (From NEURONTIN) (Severe, HIVES 10/12/17) naproxen (Severe, HIVES 10/12/17) tramadol (From ULTRAM) (Severe, HIVES 10/12/17) Pertinent Lab Results: SERVICE DATE: 10/25/17-162 EXAM TYPE: RAD - XRY-PORTABLE CHEST XRAY IMPRESSION: No consolidations. Blunting of both lateral costophrenic angles likely cash posting representative of pleural thickening, though small pleural effusions cannot be excluded. SERVICE DATE: 10/25/17-184 EXAM TYPE: CAT - CTA CHEST-PULMONARY EMBOLISM IMPRESSION: No CT evidence for pulmonary embolism. No acute airspace disease. 8mm area of enhancement within the right lobe of the liver. This is nonspecific, but could correspond to an hemangioma. Consider correlation with abdominal MRI for further tissue characterization. SERVICE DATE: 10/26/17- EXAM TYPE: CAT - CT CHEST WO IV CONTRAST IMPRESSION: 1. Findings are consistent with advanced emphysematous lung disease. No significant bronchiectasis or peribronchial inflammatory changes are seen. 2. A few nonspecific and probably benign solid non-calcified nodules are seen bilaterally, measuring up to 3 mm in size. These can be reassessed in 12 months to establish stability of these nodules. 3. No adenopathy. 4. Bilateral cystic masses in the kidneys, including a Bosniak category 2F cyst in the left kidney. Recommend short interval follow-up imaging in 6 months for reassessment. Ideally, this should be performed as a dedicated renal MRI scan with and without contrast. SERVICE DATE: 10/26/17- EXAM TYPE: CARD - ECHO (COMPLETE) W/CONTRAST CONCLUSIONS Small left ventricular cavity. Normal left ventricular wall thickness. No obvious regional wall motion abnormalities. Normal left ventricular ejection fraction visually estimated at 60%. Abnormal relaxation filling pattern of the left ventricle for age (stage 1 diastolic dysfunction). Normal right ventricular size and function. Normal atrial size. Mild tricuspid regurgitation. No evidence of pulmonary hypertension. Dilated inferior vena cava. Laboratory Tests 10/28 10/27 0530 0630 Blood Gas pH (7.35 - 7.45 PH) 7.44 pCO2 (35 - 45 TORR) 52 H pO2 (80 - 100 TORR) 77 L HCO3 (21 - 28 MEQ/L) 35 H ABG O2 Sat (Measured) (>96.0 %) 95.0 L P-50 (Temp Corrected) Y Carboxyhemoglobin (1.5 - 5.0 %) 1.1 L O2 Concentration % 2 LPM Temperature (97.0 - 100.0 FARH) 97.5 O2 Delivery Method N/C Chemistry Sodium (137 - 145 mmol/L) 138 Potassium (3.5 - 5.1 mmol/L) 3.8 Chloride (98 - 107 mmol/L) 95 L Carbon Dioxide (22 - 30 mmol/L) 35 H Anion Gap (5 - 16) 7 BUN (9 - 20 mg/dL) 21 H Creatinine (0.7 - 1.2 mg/dL) 0.5 L Estimated GFR (>60 ml/min) > 60 Glucose (65 - 99 mg/dL) 72 Calcium (8.4 - 10.2 mg/dL) 8.8 Phosphorus (2.5 - 4.5 mg/dL) 4.1 Magnesium (1.6 - 2.3 mg/dL) 1.8 Total Bilirubin (0.2 - 1.3 mg/dL) 0.7 AST (17 - 59 U/L) 13 L ALT (21 - 72 U/L) 26 Albumin (3.5 - 5.0 g/dL) 3.4 L Hematology CBC w Diff NO MAN DIFF REQ WBC (4.8 - 10.8 /CUMM) 13.9 H RBC (4.70 - 6.10 /CUMM) 5.30 Hgb (14.0 - 18.0 G/DL) 14.1 Hct (42 - 52 %) 44.0 MCV (80.0 - 94.0 FL) 83.1 MCH (27.0 - 31.0 PG) 26.6 L MCHC (33.0 - 37.0 G/DL) 32.0 L RDW (11.5 - 14.5 %) 15.2 H Plt Count (130 - 400 /CUMM) 267 MPV (7.4 - 10.4 FL) 7.3 L Gran % (42.2 - 75.2 %) 71.3 Lymphocytes % (20.5 - 51.1 %) 21.3 Monocytes % (1.7 - 9.3 %) 6.4 Eosinophils % (0 - 5 %) 0.7 Basophils % (0.0 - 2.0 %) 0.3 Absolute Granulocytes (1.4 - 6.5 /CUMM) 9.9 H Absolute Lymphocytes (1.2 - 3.4 /CUMM) 3.0 Absolute Monocytes (0.10 - 0.60 /CUMM) 0.9 H Absolute Eosinophils (0.0 - 0.7 /CUMM) 0.1 Absolute Basophils (0.0 - 0.2 /CUMM) 0 Miscellaneous Phlebotomy Draw Site RIGHT RADIAL 10/27 0500 Chemistry Sodium (137 - 145 mmol/L) 136 L Potassium (3.5 - 5.1 mmol/L) 4.7 Chloride (98 - 107 mmol/L) 90 L Carbon Dioxide (22 - 30 mmol/L) 39 H Anion Gap (5 - 16) 7 BUN (9 - 20 mg/dL) 21 H Creatinine (0.7 - 1.2 mg/dL) 0.6 L Estimated GFR (>60 ml/min) > 60 Glucose (65 - 99 mg/dL) 113 H Calcium (8.4 - 10.2 mg/dL) 9.7 Phosphorus (2.5 - 4.5 mg/dL) 4.2 Magnesium (1.6 - 2.3 mg/dL) 1.9 Total Bilirubin (0.2 - 1.3 mg/dL) 0.8 AST (17 - 59 U/L) 17 ALT (21 - 72 U/L) 29 Albumin (3.5 - 5.0 g/dL) 4.2 Hematology CBC w Diff NO MAN DIFF REQ WBC (4.8 - 10.8 /CUMM) 10.1 RBC (4.70 - 6.10 /CUMM) 5.75 Hgb (14.0 - 18.0 G/DL) 15.2 Hct (42 - 52 %) 47.4 MCV (80.0 - 94.0 FL) 82.5 MCH (27.0 - 31.0 PG) 26.4 L MCHC (33.0 - 37.0 G/DL) 32.0 L RDW (11.5 - 14.5 %) 15.1 H Plt Count (130 - 400 /CUMM) 293 MPV (7.4 - 10.4 FL) 7.4 Gran % (42.2 - 75.2 %) 90.2 H Lymphocytes % (20.5 - 51.1 %) 7.3 L Monocytes % (1.7 - 9.3 %) 2.3 Eosinophils % (0 - 5 %) 0.1 Basophils % (0.0 - 2.0 %) 0.1 Absolute Granulocytes (1.4 - 6.5 /CUMM) 9.1 H Absolute Lymphocytes (1.2 - 3.4 /CUMM) 0.7 L Absolute Monocytes (0.10 - 0.60 /CUMM) 0.2 Absolute Eosinophils (0.0 - 0.7 /CUMM) 0 Absolute Basophils (0.0 - 0.2 /CUMM) 0 Vital Signs Date Time Temp Pulse Resp B/P B/P Pulse O2 O2 Flow FiO2 Mean Ox Delivery Rate 10/29 1358 97.8 108 18 130/72 94 Nasal 2.0L Cannula 10/29 1130 96 134/92 10/29 1038 91 Nasal 2.0L Cannula 10/29 0901 104 140/100 10/29 0800 95 Nasal 2.0L Cannula 10/29 0715 97.9 125 20 162/100 92 10/29 0000 Nasal 2.0L Cannula 10/28 2221 97.9 90 20 120/80 92 Nasal 1.0L Cannula 10/28 1950 94 Nasal 1.0L Cannula Intake & Output 10/29 1600 10/29 0800 10/29 0000 Intake Total 600 480 Output Total 500 Balance 600 -500 480 Intake, Oral 600 480 Output, Urine 500 Disposition Summary Disposition Principal Diagnosis: COPD exacerbation Severe anxiety Chronic opiate dependence on methadone CT evidence of hepatic enhancement Additional Diagnosis: As above Discharge Disposition: home or self care Discharge Instructions General Discharge Information Code Status: Full Code Patient's Diet: Regular Patient's Activity: As tolerated Follow-Up Instructions/Appts: please follow up with your PCP within one week of discharge. Outpatient Psychiatry appointment has been made for you on November, at 2:00 PM, with [facility] at [address] [place] [address] , . Please bring photo ID and insurance card. Medications at Discharge Discharge Medications: Stop taking the following medications: Alprazolam (Alprazolam) 2 MG TABLET ORAL TWICE DAILY Qty = 60 Prednisone (Prednisone) 10 MG TABLET ORAL SEE INSTRUCTIONS Qty = 26 Azithromycin (Azithromycin) 500 MG TABLET ORAL DAILY Qty = 3 Alprazolam (Xanax XR) 2 MG TAB.ER.24H ORAL BID Qty = 10 Continue taking these medications: Ipratropium/Albuterol Sulfate (Iprat-Albut 0.5-3(2.5) MG/3 Ml) 0.5 MG-3 MG (2.5 MG BASE)/3 ML AMPUL.NEB 3 Milliliters Inhale through mouth Q6H as needed for WHEEZING Qty = 270 Comments: Last Taken: 10/15/17 Time: 8:30 AM Albuterol Sulfate (Proair Hfa) 90 MCG HFA.AER.AD 2 Puff Inhale through mouth Q4H as needed for WHEEZING Qty = 9 Comments: Last Taken: 10/15/17 Time: 8:30AM Methadone HCl (Methadone HCl) 10 MG/ML ORAL.CONC 100 Milligram ORAL DAILY Comments: last given 10/29/17 @ 0630 Start taking the following new medications: Alprazolam (Alprazolam) 1 MG TABLET 2 Milligram ORAL Every Morning Qty = 28 No Refills Comments: last given 10/29/17 @ 1000 Alprazolam (Alprazolam) 1 MG TABLET 1.5 Milligram ORAL Every night Qty = 21 No Refills Prednisone (Prednisone) 10 MG TABLET 1 Tablet ORAL DAILY Qty = 37 No Refills Instructions: . Comments: 10/29-11/01: Take 4 tablets, once daily 11/02-: Take 3 tablets, once daily 11/05-: Take 2 tablets, once daily 11/08-11/12: Take 1 tablet, once daily 11/13-: Take 1 tablet, every other day, once daily 11/22: STOP Fluticasone Propionate (Flovent Hfa) 110 MCG/ACTUATION AER.W.ADAP 2 Puff Inhale through mouth TWICE DAILY Qty = 1 No Refills Instructions: . Comments: last given 10/29/17 @ 1000 Escitalopram Oxalate (Lexapro) 5 MG TABLET 5 Milligram ORAL DAILY Qty = 30 No Refills Instructions: . Comments: last given 10/29/17 @ 1000 Amlodipine Besylate (Amlodipine Besylate) 5 MG TABLET 5 Milligram ORAL DAILY Qty = 30 No Refills Instructions: . Comments: last given 10/29/17 @ 1000 Azithromycin (Azithromycin) 250 MG TABLET 250 Milligram ORAL EVERY 48 HOURS (Every 2 days) Qty = 30 No Refills Instructions: . Comments: last given 10/29/17 @ 1000 Copies To: Ermias KAMINSKI,Ziggy Attending MD Review Statement Documenting Attending: Laurie Enrique MD Other Findings: Patient seen/exmained bedside. No new complaints. transferred from ICU overnight. taper steroids, recheck BP and if higher add amlodipine. Needs outpatient f/u PCP and pulmonary at discharge. f/u ophathalmology for corneal ulcers.
[2017-10-29 13:58] VITALS: BP 130/72
[2017-10-29] MEDS ORDERED: ALPRAZOLAM1 M2 PO ×2 (14:30)
[2017-10-29] MEDS ORDERED: AMLODIPINE BESYL5 M1 PO (14:33)
[2017-10-29] MEDS ORDERED: FLOVENT HFA12 G1 INH (14:33)
[2017-10-29] MEDS ORDERED: LEXAPRO5 M1 PO (14:33)
== END 2017-10-29 15:54 | DRG 189 ==
LOC: ERH 15:11 → 2NB 19:33 → ERHI 19:33 → CRI 19:33 → ENRESERV 22:05 → CANRESERV 22:05 → ERHI 22:33 → EDBEDREQ 22:37 → ENTRNSPT 10-26 08:13 → EDTRNSPTSTS 10-26 08:21 → EDTRNSPT 10-26 08:21 → CRI 10-26 08:30 → CMPTRNSPT 10-26 08:49 → ENTRNSPT 10-28 11:01 → CMPTRNSPT 10-28 11:01 → EDTRNSPT 10-28 11:49 → EDTRNSPTSTS 10-28 11:49 → 2NB 10-28 12:15 → CMPTRNSPT 10-28 12:20 → ENTRNSPT 10-29 15:25 → EDTRNSPTSTS 10-29 15:37 → EDTRNSPT 10-29 15:37 → 2NB 10-29 15:54 → CMPTRNSPT 10-29 16:22
PROVIDERS: Internal Medicine Endocrinology, Diabetes & Metabolism; Physician Assistant Medical; Student in an Organized Health Care Education/Training Program
DX: J96.21 Acute and chronic respiratory failure with hypoxia (principal); R64 Cachexia; F11.20 Opioid dependence, uncomplicated; J44.1 Chronic obstructive pulmonary disease with (acute) exacerbation; Z68.1 Body mass index [BMI] 19.9 or less, adult; J96.22 Acute and chronic respiratory failure with hypercapnia; D18.03 Hemangioma of intra-abdominal structures; Z87.891 Personal history of nicotine dependence; F41.9 Anxiety disorder, unspecified; I44.5 Left posterior fascicular block; F14.10 Cocaine abuse, uncomplicated; J98.09 Other diseases of bronchus, not elsewhere classified; F43.10 Post-traumatic stress disorder, unspecified; V49.9XXS Car occupant (driver) (passenger) injured in unspecified traffic accident, sequela
CPT/HCPCS: 2NBP; CCU; ERO; 36415; 71045; 80307; 81003; 82436; 87040; 87070; 87389; 87804; 87804-59; 93005; 93010; 99232; C8929; J0456; J1650; J2920; J2930; J3490; J7060; J7512; Q9957